=== PATIENT | female | born 1975 | race Caucasian/White ===

== ENCOUNTER 2021-06-25 10:42 | Outpatient (CLI) | payer OTHER, SELFPAY ==
[2021-06-25 11:42] LABS: Alanine Aminotransferase 13 U/L (14-59); Albumin Level 3.8 g/dL (3.4-5.0); Alkaline Phosphatase 65 U/L (46-116); Anion Gap 11 mmol/L (8-16); Aspartate Amino Transferase 13 U/L (15-37); Bilirubin,Total 0.4 mg/dL (0.00-1.00); Blood Urea Nitrogen 14 mg/dL (7-18); Calcium 8.8 mg/dL (8.5-10.1); Carbon Dioxide 26 mmol/L (21-32); Chloride 103 mmol/L (98-108); Cholesterol 253 mg/dL (0-200); Estimated Glomerular Filt Rate > 60; Glucose 85 mg/dL (70-99); HDL Direct 46 mg/dL (40-60); LDL Cholesterol Calculated 178 mg/dL (<130); Osmolality Calculated 289 mOsm/kg (285-295); Potassium 4.5 mmol/L (3.5-5.1); Sodium 140 mmol/L (136-145); Triglycerides 144 mg/dL (0-150)
== END 2021-06-25 10:43 | disposition home or self-care (01) ==
LOC: CHSLAB 10:44
PROVIDERS: PCP Nurse Practitioner Family; Visit Provider Nurse Practitioner Family
DX: Z00.00 Encounter for general adult medical examination without abnormal findings (principal)
CPT/HCPCS: 36415; 80053; 80061

== ENCOUNTER 2022-01-02 00:36 | Day surgery (SDC) | payer OTHER, SELFPAY ==
[2021-12-28 14:25] VITALS: BMI 29.5
--- NOTE | 2021-12-28 14:33 | PC.NURSE ---
Report to the Outpatient Waiting Room, entrance under the green pavilion located off [facility], at time 0800__ on date __01/02/22 . OR Time: __999 . - You and your visitor will be asked a series of questions to screen for COVID 19 for your protection. - Only one visitor is allowed at this time. - The patient visitor is requested to leave or wait in car when not with patient. - A mask is required within the hospital. Patients may have clear liquids (water, carbonated beverages, clear teas, apple juice) until 3 hours prior to surgery with a maximum of 20 ounces. - No food from midnight until time of surgery - Infants may have breast milk until 4 hours before surgery, infant formula 6 hours prior to surgery. - Children will be allowed to drink immediately following surgery. If applicable, please bring a bottle or sippy cup to assist with drinking. Juice, water, soda, and popsicles are readily available. For infants on formula, please bring formula the day of surgery. Pacifiers are allowed. Take the following medications with a SIP of water the morning of surgery: ADDERALL, SERTRALINE Medications to discontinue per physician VITAMIN Date to take last dose___12/30/21 Please no make-up, nail mozambican, hairspray, perfume, deodorant, or body powder the day of surgery. No jewelry (including any body piercings) or valuables the day of surgery, leave them at home. Please take a shower or bath the night before, or the morning of, surgery with an antibacterial soap. Wear comfortable, loose fitting clothing. Children are encouraged to wear pajamas. - Jewelry must be removed prior to entering the operating room. Rings and piercings that are not removed may be cut off. - The hospital will not accept responsibility for valuables. - Please leave all valuables, including medications, at home the day of surgery. If you are going home after surgery, a licensed hazmat cdl driver must drive you home. - NO public transportation without another adult. - We recommend that an adult stay with you for 24 hours following discharge. - We also recommend that you do not drive, make important decision, drink alcoholic beverages, or take any drugs that were not prescribed by your health care provider for at least 24 hours after your discharge time. For Pediatric surgeries, we recommend two adults accompany the child home (only one inside the building at this time). Follow any additional instructions given to you from your surgeon. If you or anyone in your household have experienced Covid symptoms in the past week, please notify your surgeon or the nurse liaison at the phone number below for possible testing. Telephone instructions given to _PATIENT___and asked if any additional questions and then verbalized understanding. Patient advised to call surgeon office or pre surgery nurse liaison [phone] if any additional questions.
[2022-01-02] VITALS (8 sets, daily range): BP systolic 100–117; BP diastolic 65–85; PULSE 58–95; RESP 14–18; TEMP 36.3–36.4; O2SAT 92–100; BMI 29.4
--- NOTE | 2022-01-02 09:16 | WPDANESEPPF ---
Anes - Initial Pre Proc Eval Procedure: Operation Date: 01/02/22 10:30 Proposed Procedures p Hysteroscopy with Biopsy Endometrium, Polypectomy, Lian Endometrial Ablation, Laparoscopic Bilateral Salpingectomy - Ladarius Valdes MD Date/Time: 01/02/22 09:16 Surgeon: Ladarius Valdes MD Pre Op Diagnosis: Polyp of Corpus Uteri, Vol STerlization Patient Data Age: 46 Gender: F Height: 1.63 m Weight: 77.7 kg Allergies Allergy/AdvReac Type Severity Reaction Status Date / Time buspirone Allergy Intermediate Unknown Verified 12/28/21 14:23 ranitidine Allergy Intermediate Unknown Verified 12/28/21 14:23 Sulfa (Sulfonamide Allergy Unknown Hives / Verified 12/28/21 14:23 Antibiotics) Red Face Sulfonamides Allergy Intermediate Unknown Uncoded 12/28/21 14:23 Home Medications Medication Instructions Recorded Confirmed Type dextroamphetamine-amphetamine ER 30 mg PO DAILY 06/25/21 12/28/21 History 30 mg 24hr capsule,extend release (Adderall XR) sertraline 50 mg tablet 50 mg PO DAILY 06/25/21 12/28/21 History multivit with minerals-iron 18 1 tablet PO DAILY 12/28/21 12/28/21 History mg-folic ac 400 mcg-vit K 25 mcg tablet (Adults Multivitamin) Patient hx anesthesia problems: none Family hx anesthesia problems: none Results Review: All pre-operative results and documents have been reviewed as part of the pre-operative evaluation. [facility] Past Medical History Medical History (Updated 01/02/22 @ 09:20 by Guy Mcrae MD) Anxiety Depression Surgical History Surgical History History of cholecystectomy Family History Family History Mother Carcinoma of colon Breast cancer Father Heart disease Social History Social History Smoking packs per day: 1 Smoking cigarettes per day: 20.0 Years smoked: 15 Smoking pack-years: 15.00 Smoking status: Former smoker Tobacco type: cigarettes Additional smoking assessment comments: 2006 QUIT DATE Alcohol intake: current Alcohol use details: 4 PER MONTH Substance use: never Substance use type: does not use Living arrangements: with family Additional living arrangements comments: lives with her son Gender identity (if verbalized by the patient): Female Anes - Evmya Final PreProcedure Day of Procedure 01/02/22 09:16 Patient weight: overweight Heart: regular rate and rhythm Lungs: clear to auscultation and normal air movement Airway: Mallampati scale class II Neurological: alert and oriented Last oral intake: >/= 8 hours ASA classification: II Emergent: no Anesthetic plan: proceed Anesthesia type and monitoring: general ETT Results Review: All pre-operative results and documents have been reviewed as part of the pre-operative evaluation. Informed Consent: The patient's anesthetic plan and its attendant risks and benefits were discussed with the patient/family/POA. Questions were solicited and answers provided to the satisfaction of the patient/family/POA.
--- NOTE | 2022-01-02 09:28 | SUR.PREOP ---
PT STATES NO NEED TO CALL ADULT DAUGHTER WHEN SHE GOES TO OR. JUST TO HAVE DR EASLEY CALL WHEN SURGERY IS FINISHED
[2022-01-02] MEDS: ACETAMINOPHEN 500 MG TABLET 1000 MG PO (09:41)
[2022-01-02] MEDS: KETOROLAC 15 MG/ML VIAL (*BKC) IV PUSH (09:41)
[2022-01-02] MEDS: LACTATED RINGERS 1,000 ML 30 ML IV CONT ×2 (09:42→11:31)
--- NOTE | 2022-01-02 09:44 | WPDHPUPDATE1 ---
History and Physical Update Update Date/Time: 01/02/22 09:44 History and Physical has been reviewed, including an updated exam of the patient. There are NO changes in the patient's condition. Risks, benefits, and alternatives have been discussed and questions answered. Patient agrees to proceed with procedure.
--- NOTE | 2022-01-02 09:58 | SUR.PREOP ---
0945; DR EASLEY IN PREOP. ADD D&C TO CONSENT
--- NOTE | 2022-01-02 11:29 | P.OP_ITS ---
Procedure Note - Detailed Date of Procedure 01/02/22 Pre-op Diagnosis Polyp of Corpus Uteri, Vol STerlization, menorrhagia Post-op Diagnosis Same Procedure Performed Laparoscopic bilateral salpingectomy, hysteroscopy D&C with polypectomy, endometrial ablation, removal of endocervical polyp. Surgeon Ladarius Valdes MD Anesthesia General Indications Menorrhagia, unwanted fertility, endometrial polyp Findings Endocervical polyp, likely fibroid, fibrous polypoid lesion on the posterior inferior endometrium. Normal-appearing tubes and ovaries. Normal pelvic anatomy, normal vulva, vagina. Endocervical mass/polyp Description of Procedure Patient was taken the operating room. She has prepped draped in the dorsal lithotomy position after induction of general anesthesia. A 5 mm abdominal incision was made in left upper quadrant of the abdomen with scalpel. A 5 mm trocars inserted the intra-abdominal cavity under direct visualization of the scope. Pneumoperitoneum was achieved. A 5 mm periumbilical incision was made using a scalpel on the abdominal scan. A 5 mm trocar was inserted the intra- abdominal cavity under visualization of the scope. A 5 mm incision made left lower quadrant of the abdomen. A 5 mm trocar was inserted the intra-abdominal cavity and direct visualization of the scope. The bilateral fallopian tubes were removed. The paratubal tissue in the area of the uterus was grasped with the LigaSure cautery and transected after being cauterized. The paratubal tissue from the ovary to the uterine cornu was cauterized and transected with LigaSure cautery. This was all done in a bila teral fashion. The tube was transected at the area of the uterine cornua and the tubes was removed through the 5 mm trocar site. The pneumoperitoneum was reduced. The trocars were removed. The skin was closed with subcuticular 4 Monocryl and covered with Dermabond. Removal of endocervical polyp/fibroid. It was grasped with a ring forceps and rotated until the mass was avulsed Our attention was then turned to the endometrial ablation portion of the procedure. A speculum was placed in the vagina. The cervix was grasped with a tenaculum. The cervix was dilated to approximately 8 mm with Dawkins dilators. The hysteroscope was inserted. And the below findings were noted. Hysteroscopic scissors were then used to dissect the posterior endometrial lesion. It was very fibrous and difficult to cut. It appeared entirely benign. Some pieces were removed. It will be sent for pathologic evaluation. All of the intrauterine surfaces were curettaged with a medium-size curette and the sp ecimens were collected. Measurements of the cervix were taken using the uterine sound and the hysteroscope. The intrauterine cavity measurements were entered into the handpiece. The device was inserted into the intrauterine cavity and the array was expanded. The balloon cuff was inflated. When an adequate seal was formed the safety and energy cycles were initiated and completed. The array was collapsed, the balloon was deflated. The insert was withdrawn. The hysteroscope was reinserted and a well desiccated intrauterine cavity was observed. The patient was taken recovery room stable condition. Sponge lap and needle counts were correct x2. She tolerated the procedure well. Estimated Blood Loss 25 Pathology Yes Complications No immediate complications Condition Stable Disposition PACU
[2022-01-02] MEDS: fentaNYL CITRATE INJ (*CRX) 100 MCG/2 ML VIAL 25 MCG IV PUSH ×4 (12:04→12:16)
[2022-01-02] MEDS: ONDANSETRON INJ 4 MG/2 ML VIAL IV PUSH (12:20)
[2022-01-02] MEDS: oxyCODONE HCL (*CRX) 5 MG TAB IR PO (13:01)
== END 2022-01-02 13:40 | disposition home or self-care (01) ==
PROVIDERS: PCP Nurse Practitioner Family; Visit Provider Obstetrics & Gynecology
PROC: 0UDB8ZZ Extraction of Endometrium, Via Natural or Artificial Opening Endoscopic (ICD-10-PCS; CPT 58558; principal; 2022-01-02 10:30)
DX: D25.0 Submucous leiomyoma of uterus (principal); Z30.2 Encounter for sterilization; N92.0 Excessive and frequent menstruation with regular cycle; N80.2 Endometriosis of fallopian tube; N73.6 Female pelvic peritoneal adhesions (postinfective); F41.8 Other specified anxiety disorders; Z87.891 Personal history of nicotine dependence
CPT/HCPCS: 58661; 58563; 88302; 88305; A9270; J1100; J1885; J2250; J2405; J2704; J2710; J3010; J7030; J7120

== ENCOUNTER 2022-04-04 14:18 | Emergency (ER) | payer OTHER, SELFPAY ==
--- NOTE | ~2022-04-04 | XR_ITS ---
EXAMINATION: XR chest 1V portable DATE: 04/04/2022 15:05 INDICATION: Left chest pain. Shortness breath. TECHNIQUE: A single frontal view of the chest was obtained. COMPARISON: Chest 2 views 04/05/2017 FINDINGS: The chest demonstrates clear lungs without pneumonia, pleural effusion, or pneumothorax. Th e heart size is normal. IMPRESSION: 1. No acute cardiopulmonary disease. Reviewed, dictated and finalized at location A.
--- NOTE | ~2022-04-04 | CT_ITS ---
EXAMINATION: CTA chest PE protocol DATE: 04/04/2022 16:00 INDICATION: Shortness of breath TECHNIQUE: Computed tomography angiography (CTA) of the chest was performed with 100 mL Omnipaque-350 intravenous contrast timed to evaluate the pulmonary arteries. Coronal maximum intensity projection 3D-reconstructions were created by the technologist. The dose-length product (DLP) was 350.27 mGy-cm. Automated exposure control and iterative reconstruction technique were employed. COMPARISON: None. FINDINGS: The pulmonary arteries are well-opacified. No pulmonary embolism is identified. The lungs are free of acute opacities. No pleural effusion or pneumothorax. No pathologically enlarged thoracic lymph nodes are identified. The heart size is normal. Calcified pulmonary nodules are consistent wit h old granulomatous disease. There there are multiple small masses of the right breast. IMPRESSION: 1. No pulmonary embolism or acute cardiopulmonary abnormality. 2. Multiple small masses of the right breast. Recommend correlation with mammography history. If not recently performed, follow-up diagnostic mammogram and possible ultrasound would be recommended. Reviewed, dictated and finalized at location B. IMPRESSION: 1. No pulmonary embolism or acute cardiopulmonary abnormality. 2. Multiple small masses of the right breast. Recommend correlation with mammog leonel history. If not recently performed, follow-up diagnostic mammogram and po ssible ultrasound would be recommended.
[2022-04-04 14:32] VITALS: BP 136/99; PULSE 110; RESP 16; TEMP 36.2; O2SAT 100
--- NOTE | 2022-04-04 14:44 | ECG_ITS ---
Measurements Intervals [place] Rate: 100 P: 40 IN: 122 QRS: 2 QRSD: 76 T: 43 QT: 327 QTc: 422 Interpretive Statements SINUS TACHYCARDIA DELAYED PRECORDIAL R/S TRANSITION BASELINE ARTIFACT- I, II, III, AVR, AVL, AVF BORDERLINE ECG NO PREVIOUS ECG AVAILABLE FOR COMPARISON Electronically Signed On 04-04-2022 15:11:41 CDT by Sen Lynch D.O.
[2022-04-04 15:07] LABS: Basophils Absolute Auto 0.09 K/mm3 (0.00-0.10); Basophils Percent Auto 1.7 % (0.0-1.0); Eosinophils Absolute Auto 0.18 K/mm3 (0.02-0.50); Eosinophils Percent Auto 3.4 % (1.0-6.0); Hemoglobin 9.6 g/dL (12.0-15.0); Immature Granulocyte Absolute 0.01 K/mm3 (0.00-0.00); Immature Granulocyte Percent A 0.2 % (0.0-0.0); Lymphocytes Absolute Auto 1.58 K/mm3 (1.10-4.50); Lymphocytes Percent Auto 29.9 % (18.0-42.0); Mean Corpuscular Hemoglobin 22.3 pg (27.0-31.0); Mean Corpuscular Volume 74.2 fL (78.0-102.0); Mean Platelet Volume 8.7 fl (9.2-11.8); Monocytes Absolute Auto 0.47 K/mm3 (0.10-0.90); Monocytes Percent Auto 8.9 % (2.0-11.0); Neutrophils Percent Auto 55.9 % (50.0-70.0); Platelet Count Result 457 K/mm3 (150-420); Red Blood Count 4.31 M/mm3 (4.20-5.40); Red Cell Distribution Width 17.8 % (11.6-14.4); White Blood Count 5.3 K/mm3 (4.8-10.8)
[2022-04-04] MEDS: SODIUM CHLORIDE 0.9% IV 1,000 ML 999 ML IV CONT (15:10)
[2022-04-04 15:24] LABS: D Dimer 0.88 mg/L (0.19-0.50)
[2022-04-04 15:38] LABS: Alanine Aminotransferase 13 U/L (14-59); Albumin Level 3.8 g/dL (3.4-5.0); Alkaline Phosphatase 63 U/L (46-116); Anion Gap 10 mmol/L (8-16); Aspartate Amino Transferase 10 U/L (15-37); Bilirubin,Total 0.2 mg/dL (0.00-1.00); Blood Urea Nitrogen 13 mg/dL (7-18); Calcium 9.1 mg/dL (8.5-10.1); Carbon Dioxide 24 mmol/L (21-32); Chloride 103 mmol/L (98-108); Estimated Glomerular Filt Rate > 60; Glucose 99 mg/dL (70-99); Osmolality Calculated 284 mOsm/kg (285-295); Sodium 137 mmol/L (136-145); Total Protein 7.2 g/dL (6.4-8.2)
[2022-04-04 15:39] LABS: Troponin I < 4.0 ng/L (0.00-60.4)
[2022-04-04 15:40] LABS: Thyroid Stimulating Hormone 5.52 uIU/mL (0.36-3.74)
--- NOTE | 2022-04-04 16:32 | ED.GENADULT ---
HPI - General Adult General Chief complaint: Unspecified Stated complaint: SOB/Fatigue/Vision blurred Time Seen by Provider: 04/04/22 14:44 Source: patient Mode of arrival: ambulatory Limitations: no limitations History of Present Illness HPI narrative: a 46-year-old female who presents with some mild shortness of breath with sinus pressure and blurry vision no cough for congestion apart and postnasal drip with no audible wheezing no fever chills no chest pain no abdominal pain does have some mild nausea but no diarrhea constipation. Onset (ago): day(s) Location: head Severity: mild Related Data Home Medications Medication Instructions Recorded Confirmed dextroamphetamine-amphetamine ER 30 mg PO DAILY 06/25/21 04/04/22 30 mg 24hr capsule,extend release (Adderall XR) sertraline 50 mg tablet 50 mg PO DAILY 06/25/21 04/04/22 multivit with minerals-iron 18 1 tablet PO DAILY 12/28/21 04/04/22 mg-folic ac 400 mcg-vit K 25 mcg tablet (Adults Multivitamin) Allergies Allergy/AdvReac Type Severity Reaction Status Date / Time buspirone Allergy Intermediate Unknown Verified 04/04/22 15:15 ranitidine Allergy Intermediate Unknown Verified 04/04/22 15:15 Sulfa (Sulfonamide Allergy Unknown Hives / Verified 04/04/22 15:15 Antibiotics) Red Face Sulfonamides Allergy Intermediate Unknown Uncoded 04/04/22 15:15 Review of Systems Review of Systems: All systems reviewed & are unremarkable except as noted in HPI and below PMFSH Past Medical History Medical History Anxiety Depression Surgical History Surgical History History of cholecystectomy Family History Family History Mother Carcinoma of colon Breast cancer Father Heart disease Social History Social History Smoking packs per day: 1 Smoking cigarettes per day: 20.0 Years smoked: 15 Smoking pack-years: 15.00 Smoking status: Former smoker Tobacco type: cigarettes Additional smoking assessment comments: 2006 QUIT DATE Alcohol intake: current Alcohol use details: 4 PER MONTH Substance use: never Substance use type: does not use Additional living arrangements comments: lives with her son Gender identity (if verbalized by the patient): Female Exam Const: General: cooperative, healthy appearing, comfortable and no acute distress HENMT: Head: normal to inspection Ears: hearing grossly normal bilaterally General nose exam: Normal external nose present Face and sinus: normal facial exam Face images: 1. Frontal sinus tenderness with palpation Throat: posterior oropharynx normal Eyes: General: appearance normal, both eyes and all related structures Visual Ramirez: normal visual ramirez by confrontation Alignment and Position: alignment normal Periorbital: periorbital findings normal Eyelids: eyelids normal Conjunctivae: conjunctivae normal Neck: Neck: normal visual inspection, full ROM, no lymphadenopathy and no meningeal signs Chest: Chest palpation & inspection: normal inspection of the chest and normal palpation of entire chest wall Resp: Effort & Inspection: normal respiratory effort Cardio: Jugular venous distension: no JVD Palpation: normal PMI Rate: regular rate Rhythm: regular rhythm GI: Inspection: normal to inspection Back/Spine/Pelvis: Back: no CVA tenderness Skin: General skin exam: normal color and no rashes or lesions noted Lesions: no lesions Rashes: no rashes Neuro: General: oriented to person, oriented to place, oriented to time and patient oriented x3 Extrem: General: normal to inspection, full ROM and capillary refill normal Psych: Appearance: grossly normal and well kempt Mental Status: mental status grossly normal Course Course Emergency Course: labs
[2022-04-04 16:48] VITALS: RESP 16; O2SAT 100
[2022-04-04 16:50] VITALS: BP 133/88; PULSE 88; RESP 16; TEMP 36.8; O2SAT 100
== END 2022-04-04 16:58 | disposition home or self-care (01) ==
PROVIDERS: Emergency Provider Emergency Medicine; PCP Nurse Practitioner Family
DX: L98.9 Disorder of the skin and subcutaneous tissue, unspecified (principal); J32.8 Other chronic sinusitis; E03.9 Hypothyroidism, unspecified
CPT/HCPCS: 36415; 71045; 71275; 80053; 84443; 84484; 85025; 85380; 93005; 96360; 99284; J7030; Q9967

== ENCOUNTER 2022-04-09 11:35 | Outpatient (CLI) | payer OTHER, SELFPAY ==
[2022-04-09 11:50] LABS: Basophils Absolute Auto 0.11 K/mm3 (0.00-0.10); Basophils Percent Auto 2.3 % (0.0-1.0); Eosinophils Absolute Auto 0.21 K/mm3 (0.02-0.50); Eosinophils Percent Auto 4.4 % (1.0-6.0); Hematocrit 35.1 % (35.0-49.0); Hemoglobin 10.4 g/dL (12.0-15.0); Immature Granulocyte Absolute 0.02 K/mm3 (0.00-0.00); Immature Granulocyte Percent A 0.4 % (0.0-0.0); Immature Reticulocyte Fraction 14.9 % (2.0-16.52); Lymphocytes Absolute Auto 1.56 K/mm3 (1.10-4.50); Lymphocytes Percent Auto 32.5 % (18.0-42.0); Mean Corpuscular HGB Conc 29.6 g/dL (32.0-36.0); Mean Corpuscular Hemoglobin 22.3 pg (27.0-31.0); Mean Corpuscular Volume 75.3 fL (78.0-102.0); Mean Platelet Volume 8.5 fl (9.2-11.8); Monocytes Percent Auto 8.3 % (2.0-11.0); Neutrophils Absolute Auto 2.5 K/mm3 (1.7-7.2); Neutrophils Percent Auto 52.1 % (50.0-70.0); Platelet Count Result 474 K/mm3 (150-420); Red Blood Count 4.66 M/mm3 (4.20-5.40); Reticulocyte Hemoglobin Conten 25.5 pg (28.0-35.0); Reticulocyte Percent 1.19 % (0.50-1.50); Reticulocytes Absolute 0.06 M/mm3 (0.02-0.1); White Blood Count 4.8 K/mm3 (4.8-10.8)
[2022-04-09 13:42] LABS: Alanine Aminotransferase 14 U/L (14-59); Albumin Level 4.1 g/dL (3.4-5.0); Alkaline Phosphatase 67 U/L (46-116); Anion Gap 10 mmol/L (8-16); Aspartate Amino Transferase 13 U/L (15-37); Bilirubin,Total 0.4 mg/dL (0.00-1.00); Blood Urea Nitrogen 14 mg/dL (7-18); Carbon Dioxide 24 mmol/L (21-32); Chloride 102 mmol/L (98-108); Cholesterol 252 mg/dL (0-200); Estimated Glomerular Filt Rate > 60; Ferritin 7 ng/mL (8-252); Free T4 Free Thyroxine 0.88 ng/dL (0.76-1.46); Glucose 90 mg/dL (70-99); HDL Direct 65 mg/dL (40-60); Iron 29 ug/dL (50-170); LDL Cholesterol Calculated 160 mg/dL (<130); Osmolality Calculated 282 mOsm/kg (285-295); Potassium 4.3 mmol/L (3.5-5.1); Sodium 136 mmol/L (136-145); Total Protein 7.4 g/dL (6.4-8.2); Triglycerides 133 mg/dL (0-150); Vitamin B12 933 pg/mL (193-986)
[2022-04-11 10:26] LABS: Red Blood Cell Folate 715 ng/mL RBC (>280)
[2022-04-12 12:28] LABS: Vitamin D 25 Hydroxy 25 ng/mL (30-100)
== END 2022-04-09 11:36 | disposition home or self-care (01) ==
PROVIDERS: PCP Nurse Practitioner Family; Visit Provider Nurse Practitioner Family
DX: D64.9 Anemia, unspecified (principal); R79.89 Other specified abnormal findings of blood chemistry; E78.5 Hyperlipidemia, unspecified; Z79.899 Other long term (current) drug therapy
CPT/HCPCS: 36415; 80053; 80061; 82306; 82607; 82728; 82747; 83540; 84439; 85025; 85046

== ENCOUNTER 2022-04-11 08:52 | Outpatient (CLI) | payer OTHER, SELFPAY ==
--- NOTE | ~2022-04-11 | MMUS_ITS ---
EXAMINATION: MM diagnostic joan BI w alina, US breast BI complete HISTORY: Multiple small masses of right breast reported on 04/04/2022 CT pulmonary scan TECHNIQUE: Full field and spot ML, MLO and CC 3-D tomosynthesis images of both breasts were performed and synthetic 2-D images were generated. CAD analysis was submitted and interpreted. Bilateral complete breast ultrasound was performed including all 4 quadrants and subareolar area of e ach breast. COMPARISON: 03/16/2015 bilateral diagnostic mammography and bilateral complete breast ultrasound exami nation BREAST PARENCHYMAL COMPOSITION: The breasts are heterogeneously dense, which may obscure small masses . MAMMOGRAM FINDINGS: Right breast: New approximately 1.6 x 2.6 X 3 cm opacity with halo sign is noted in the right subareolar area; the mammographic features suggest benign process, likely a benign cyst. Approximately 7.6 x 14.7 mm circumscribed opacity is noted in the central left breast 3.3 cm deep to the nipple on MLO view (MLO Tomosynthesis image 28/56).. The heterogeneously dense stroma may obscure additional masses in either breast. No architectural distortion, malignant calcification, skin thickening or retraction of either breast is detected. ULTRASOUND FINDINGS; Right breast: 6:00 1 cm from nipple: Had palpable area there is a 7.6 x 3.8 x 7 mm sonolucency without internal vas cularity, consistent with cyst. Retroareolar area: 10.7 x 22 x 31 mm parallel circumflex sonolucency with through transmission incident response manager ior enhancement, consistent with large cyst. 12:00 5 cm from nipple: Parallel circumscribed hypoechoic 4 x 6.9 x 9.6 mm solid lesion without suspi cious shadowing 12:00 3 cm from nipple: 3.5 mm cyst 3:00 1 cm from nipple: 3.2 mm cyst 4:00 near nipple: Parallel circumscribed hypoechoic 3.7 x 2.6 x 5.1 mm circumscribed solid hypoechoic lesion without internal vascularity or posterior shadowing 4:00 near nipple: Cluster of cysts measuring up to approximately 4.5 x 6.4 mm overall dimension 9:00 AND 10:00: Clusters of cysts 10:00 7 cm from nipple: 4.5 x 11 mm circumscribed hypoechoic solid lesion Left breast: 11:00 near nipple: 4.8 x 14 mm circumscribed hypoechoic lesion without internal vascularity , with t hrough transmission, benign 1:00: 3.6 X 11 mm cyst 2:00 7 cm from nipple: 4.7 x 11 mm solid hypoechoic lesion without internal vascularity or shadowing 4:00, 5:00: occasional 3 mm or smaller cysts 8:00: 2.9 x 5.9 mm cyst Left axilla: 5 x 3.5 x 3.4 mm circumscribed hypoechoic lesion without internal vascularity or shadow ing IMPRESSION: 1. Multiple bilateral cysts and circumscribed solid lesions; no mammographic or sonographic evidence of malignancy 2. Routine annual mammographic screening is recommended. BIRADS CATEGORY 2: BENIGN And ultrasound Reviewed, dictated and finalized at location A. IMPRESSION: 1. Multiple bilateral cysts and circumscribed solid lesions; no mammographic or sonographic evidence of malignancy 2. Routine annual mammographic screening is recommended. BIRADS CATEGORY 2: BENIGN And ultrasound
== END 2022-04-11 08:53 | disposition home or self-care (01) ==
LOC: CHSIMG 08:54
PROVIDERS: PCP Nurse Practitioner Family; Visit Provider Nurse Practitioner Family
DX: N63.13 Unspecified lump in the right breast, lower outer quadrant (principal)
CPT/HCPCS: 76641; 77062; 77066; G0279

== ENCOUNTER 2023-03-11 13:26 | Outpatient (CLI) | payer OTHER, SELFPAY ==
[2023-03-11 13:40] LABS: Basophils Absolute Auto 0.08 K/mm3 (0.00-0.10); Basophils Percent Auto 1.4 % (0.0-1.0); Eosinophils Absolute Auto 0.22 K/mm3 (0.02-0.50); Eosinophils Percent Auto 3.9 % (1.0-6.0); Hematocrit 42.5 % (35.0-49.0); Hemoglobin 14.5 g/dL (12.0-15.0); Immature Granulocyte Absolute 0.01 K/mm3 (0.00-0.00); Immature Granulocyte Percent A 0.2 % (0.0-0.0); Lymphocytes Percent Auto 26.5 % (18.0-42.0); Mean Corpuscular HGB Conc 34.1 g/dL (32.0-36.0); Mean Corpuscular Hemoglobin 31.9 pg (27.0-31.0); Mean Corpuscular Volume 93.6 fL (78.0-102.0); Mean Platelet Volume 9.2 fl (9.2-11.8); Monocytes Absolute Auto 0.47 K/mm3 (0.10-0.90); Monocytes Percent Auto 8.3 % (2.0-11.0); Neutrophils Absolute Auto 3.4 K/mm3 (1.7-7.2); Neutrophils Percent Auto 59.7 % (50.0-70.0); Platelet Count Result 342 K/mm3 (150-420); Red Blood Count 4.54 M/mm3 (4.20-5.40); White Blood Count 5.7 K/mm3 (4.8-10.8)
[2023-03-11 14:22] LABS: Alanine Aminotransferase 7 U/L (14-59); Albumin Level 3.8 g/dL (3.4-5.0); Alkaline Phosphatase 57 U/L (46-116); Amylase 63 U/L (25-115); Anion Gap 11 mmol/L (8-16); Aspartate Amino Transferase < 10 U/L (15-37); Bilirubin,Total 0.6 mg/dL (0.00-1.00); Blood Urea Nitrogen 6 mg/dL (7-18); Calcium 9.2 mg/dL (8.5-10.1); Carbon Dioxide 25 mmol/L (21-32); Chloride 106 mmol/L (98-108); Cholesterol 194 mg/dL (0-200); Estimated Glomerular Filt Rate > 60; Glucose 98 mg/dL (70-99); HDL Direct 44 mg/dL (40-60); LDL Cholesterol Calculated 117 mg/dL (<130); Lipase 70 U/L (16-77); Osmolality Calculated 291 mOsm/kg (285-295); Potassium 4.3 mmol/L (3.5-5.1); Sodium 142 mmol/L (136-145); Triglycerides 167 mg/dL (0-150)
== END 2023-03-11 13:27 | disposition home or self-care (01) ==
LOC: CHSLAB 13:27
PROVIDERS: PCP Nurse Practitioner Family; Visit Provider Nurse Practitioner Family
DX: E78.5 Hyperlipidemia, unspecified (principal); K90.9 Intestinal malabsorption, unspecified
CPT/HCPCS: 36415; 80053; 80061; 82150; 83690; 85025

== ENCOUNTER 2023-04-04 09:01 | Outpatient (CLI) | payer OTHER, SELFPAY ==
--- NOTE | ~2023-04-04 | US_ITS ---
EXAMINATION: US abdomen complete DATE: 04/04/2023 09:47 INDICATION: Abdominal pain, bowel changes TECHNIQUE: Multiple grayscale and Doppler ultrasound images of the abdomen were obtained. COMPARISON: 05/05/2015 FINDINGS: The head and body of the pancreas are normal. The pancreatic tail is obscured by bowel gas. The liver is normal with normal echogenicity and echotexture. No surface nodularity. Normal hepatope rowdy flow in the main portal vein. There are changes of cholecystectomy The normal common bile duct me asures 5 mm. The visualized portions of the aorta and inferior vena cava are normal. The spleen is not well visualized but grossly normal in appearance. The right kidney measures 11.5 x 4.8 x 5.4 cm. The left kidney measures 11.1 x 4.6 x 4.8 cm. The kidneys demonstrate normal parenchyma l echogenicity. There is no hydronephrosis. IMPRESSION: 1. No sonographic correlate for the patient's symptoms. Reviewed, dictated and finalized at location B.
[2023-04-09 05:56] LABS: Fecal Fat, Ql Normal (Normal)
[2023-04-10 18:53] LABS: Calprotectin, Stool <5 mcg/g
[2023-04-10 22:39] LABS: Lactoferrin, Stool Negative (Negative)
[2023-04-13 14:38] LABS: Pancreatic Elastase, Stool >500 mcg/g
== END 2023-04-04 09:02 | disposition home or self-care (01) ==
PROVIDERS: PCP Nurse Practitioner Family; Visit Provider Nurse Practitioner Family
DX: R19.7 Diarrhea, unspecified (principal); K90.9 Intestinal malabsorption, unspecified; R19.5 Other fecal abnormalities
CPT/HCPCS: 76700; 82653; 82705; 83630; 83993; 87045; 87427; 87449; 87493

== ENCOUNTER 2024-11-17 09:10 | Outpatient (CLI) | payer OTHER, SELFPAY ==
--- NOTE | ~2024-11-17 | MM_ITS ---
EXAMINATION: MM screening joan BI w alina HISTORY: Screening TECHNIQUE: Craniocaudal and mediolateral oblique 3-D tomosynthesis images were obtained and synthetic 2-D images were generated. CAD analysis was submitted and interpreted. COMPARISON: Comparison to multiple prior studies sequentially, with oldest reviewed study dated 03/20. BREAST PARENCHYMAL COMPOSITION: Not dense: There are scattered areas of fibroglandular density. FINDINGS: There are developing bilateral breast masses. There are developing clustered calcifications in the upper outer quadrant of the right breast. There are no suspicious areas of architectural dist ortion. IMPRESSION: 1. Developing bilateral breast masses and clustered indeterminate right breast calcifications. 2. Additional mammographic views and possible breast ultrasound are recommended. BI-RADS Category 0: Incomplete: Needs additional imaging evaluation. Reviewed, dictated and finalized at location A. IMPRESSION: 1. Developing bilateral breast masses and clustered indeterminate right breast calcifications. 2. Additional mammographic views and possible breast ultrasound are recommended . BI-RADS Category 0: Incomplete: Needs additional imaging evaluation.
--- OUTSIDE RECORDS SUMMARY | 2024-11-17 09:59 | XMS_ITS | Data Portability ---
Author Organization [facility] [place] Address [address] [place] [address] [place] [address] Care Team Providers Care Prepress Supervisor Name Role Phone LETA ALVARENGA Primary Care Provider Assessment Encounter Date Assessment Date Assessment LastModified by Organization Details LastModified Time 05/30/2023 05/30/2023 Annual gynecological exam performed. Patient will come back in a year unless there are new symptoms. Not available 05/30/2023 13:31:08 Plan of Treatment Reminders Order Date Submit Date Provider Last Modified By Organization Details Last Modified Time Details Appointments [facility] 2024 08:30A M DORINA GOODSON, OLIVER Not available Not available Not available Lab urinalysi s, dipstick 2023 024 [email or web address] [place], [address], [place], [address], 04/07/2024 11:33:17 culture, urine 2023 024 [facility] (Lab), [address], [place], [address], 04/08/2024 20:16:42 urinalysi s, dipstick 2023 024 [email or web address] [address], [address], [place], [address], 04/01/2024 16:22:02 urinalysi s, dipstick 2021 022 [email or web address], [address], [place], [address], 01/08/2022 18:11:53 culture, urine 2021 022 [email or web address] [facility] (Lab), [address] [facility], [place], [address], 02/12/2022 23:45:27 Referral None recorded. Procedures None recorded. Surgeries None recorded. Imaging None recorded. Medication Orders Macrobid 100 mg capsule 2023 024 [id number], [address], [place], [id number], 04/07/2024 11:34:23 Cipro 500 mg tablet 2023 024 [facility] #[id number], [address], [place], [id number], 04/01/2024 16:39:53 Diflucan 150 mg tablet 2023 024 [id number], [address], [place], [id number], 04/01/2024 16:38:37 clotrimaz ole-betam ethasone 1 %-0.05 % topical cream 2023 024 [id number], [address], [place], [id number], 04/01/2024 16:38:35 metronida zole 500 mg tablet 2022 024 [facility] #[id number], [address], [place], [id number], 04/01/2024 16:14:10 Patient TargetsNo targets recorded. Patient InstructionsNo instructions recorded. Reason for Referral None Reported. Results Created Date Observation Date Name Description Value Unit Range Abnormal Flag Note LastModifiedBy Organization Detail LastModifiedTime 12/20/19 22 12/19/2021 CBC W/DIF F WBC 4.4 10'3/ uL 3.6-10 .2 Not Available [facility] (Lab) [address], [place], [address], 12/20/2021 03:54:20 12/20/19 22 12/19/2021 CBC W/DIF F RBC 4.30 10'6/ uL (based on docume nted legal sex) 4.10-5 .30 Not Available [facility] (Lab) [address] [place], [address], 12/20/2021 03:54:20 12/20/19 22 12/19/2021 CBC W/DIF F HGB 9.7 g/dL (based on docume nted legal sex) 11.9-1 5.8 low Not Available [facility] (Lab) [address] [place], [address], 12/20/2021 03:54:20 12/20/19 22 12/19/2021 CBC W/DIF F HCT 34.3 % (based on docume nted legal sex) 37.4-4 8.3 low Not Available [facility] (Lab) [address] [place], [address], 12/20/2021 03:54:20 12/20/19 22 12/19/2021 CBC W/DIF F MCV 80.0 fL 82.0-9 9.0 low Not Available [facility] (Lab) [address] [place], [address], 12/20/2021 03:54:20 12/20/19 22 12/19/2021 CBC W/DIF F MCH 23.0 pg 27.0-3 3.0 low Not Available [facility] (Lab) [address] [place], [address], 12/20/2021 03:54:20 12/20/19 22 12/19/2021 CBC W/DIF F MCHC 28.0 g/dL 32.0-3 6.0 low Not Available [facility] (Lab) [address], [place], [address], 12/20/2021 03:54:20 12/20/19 22 12/19/2021 CBC W/DIF F RDW 23.0 % 11.0-1 5.0 high Not Available [facility] (Lab) [address], [place], [address], 12/20/2021 03:54:20 12/20/19 22 12/19/2021 CBC W/DIF F plt 483 10'3/ uL 150-45 0 high Not Available [facility] (Lab) [address], [place], [address], 12/20/2021 03:54:20 12/20/19 22 12/19/2021 CBC W/DIF F MPV 9.6 fL 9.8-12 .7 low Not Available [facility] (Lab) [address], [place], [address], 12/20/2021 03:54:20 12/20/19 22 12/19/2021 CBC W/DIF F NRBC's 0.00 % 0 Not Available [facility] (Lab) [address] [place], [address], 12/20/2021 03:54:20 12/20/19 22 12/19/2021 CBC W/DIF F absolute NRBCs 0.0 10'3/ uL 0 Not Available [facility] (Lab) [address] [place], [address], 12/20/2021 03:54:20 12/20/19 22 12/19/2021 CBC W/DIF F neutrophils 55.0 % 37.0-7 2.0 Not Available [facility] (Lab) [address] [place], [address], 12/20/2021 03:54:20 12/20/19 22 12/19/2021 CBC W/DIF F lymphocytes 32.0 % 16.0-4 8.0 Not Available [facility] (Lab) [address] [facility], [place], [address], 12/20/2021 03:54:20 12/20/19 22 12/19/2021 CBC W/DIF F monocytes 8.0 % 4.0-14 .0 Not Available [facility] (Lab) [address] [facility], [place], [address], 12/20/2021 03:54:20 12/20/19 22 12/19/2021 CBC W/DIF F eosinophils 3.0 % 0.0-9. 0 Not Available [facility] (Lab) [address] [facility], [place], [address], 12/20/2021 03:54:20 12/20/19 22 12/19/2021 CBC W/DIF F basophils 2.0 % 0.0-2. 0 Not Available [facility] (Lab) [address] [facility], [place], [address], 12/20/2021 03:54:20 12/20/19 22 12/19/2021 CBC W/DIF F immature granulocytes 0.0 % no define d refere nce range Not Available [facility] (Lab) [address] [place], [address], 12/20/2021 03:54:20 12/20/19 22 12/19/2021 CBC W/DIF F absolute neutrophils 2.4 10'3/ uL 1.1-6. 0 Not Available [facility] (Lab) [address] [place], [address], 12/20/2021 03:54:20 12/20/19 22 12/19/2021 CBC W/DIF F absolute lymphocytes 1.4 10'3/ uL 0.7-3. 4 Not Available [facility] (Lab) [address] [facility], [place], [address], 12/20/2021 03:54:20 12/20/19 22 12/19/2021 CBC W/DIF F absolute monocytes 0.4 10'3/ uL 0.3-1. 0 Not Available [facility] (Lab) [address] [place], [address], 12/20/2021 03:54:20 12/20/19 22 12/19/2021 CBC W/DIF F absolute eosinophils 0.2 10'3/ uL 0.0-0. 6 Not Available [facility] (Lab) [address] [facility], [place], [address], 12/20/2021 03:54:20 12/20/19 22 12/19/2021 CBC W/DIF F absolute basophils 0.1 10'3/ uL 0.0-0. 1 Not Available [facility] (Lab) [address] [facility], [place], [address], 12/20/2021 03:54:20 12/20/19 22 12/19/2021 CBC W/DIF F absolute immature granulocytes 0.00 10'3/ uL 0.00-0 .10 2021 2:33 AM: P indic ates parti al resul ts on a panel have been relea sed. Addit ional resul ts will follo w. 2021 2:33 AM: This resul t has been final verif ied. No addit ional or fung ed resul ts are expec nhung. Not Available [facility] (Lab) [address] [facility], [place], [address], 12/20/2021 03:54:20 12/20/19 22 12/19/2021 TOM TIN / IRON / TRANS TOM N / TIBC iron 10 ug/dL 40-170 low Not Available [facility] (Lab) [address] [place], [address], 12/20/2021 03:54:20 12/20/19 22 12/19/2021 TOM TIN / IRON / TRANS TOM N / TIBC transferrin 297 mg/dL 200-36 0 Not Available [facility] (Lab) [address] [place], [address], 12/20/2021 03:54:20 12/20/19 22 12/19/2021 TOM TIN / IRON / TRANS TOM N / TIBC ferritin 13.0 NG/mL 8.0-25 2.0 Not Available [facility] (Lab) [address] [facility], [place], [address], 12/20/2021 03:54:20 12/20/19 22 12/19/2021 TOM TIN / IRON / TRANS TOM N / TIBC TIBC 416 ug/dL 250-45 0 Not Available [facility] (Lab) [address] [place], [address], 12/20/2021 03:54:20 12/20/19 22 12/19/2021 TOM TIN / IRON / TRANS TOM N / TIBC iron saturation 2 % 20-55 low Not Available [facility] (Lab) [address] [place], [address], 12/20/2021 03:54:20 01/09/20 22 01/08/2022 CULTU RE: URINE result report SEE RESULT S BELOW Test: Cultu re: Urine Speci men Sourc e: Urine Voide d Speci men Type: Urine Speci men Date: 2021 4:56 PM Resul t Date: 2021 10:29 PM Resul t Statu s: Final resul t Abnor mal: No Resul ting Lab: [facility] [address] [facility] [address] Tel: [phone] CULTU RE ----- ----- ----- --- No growt h in 1 day (dete ction level of 10,00 0 colon ies / ml.) Not Available [facility] (Lab) [address] [place], [address], 01/09/2022 23:33:27 01/09/20 22 01/08/2022 urina lysis , dipst ick Leukocytes ++ Not Available [facility] [address], [place], [address], 01/08/2022 17:33:52 01/09/20 22 01/08/2022 urina lysis , dipst ick Nitrite NEGATI VE Not Available [place] [address], [place], [address], 01/08/2022 17:33:52 01/09/20 22 01/08/2022 urina lysis , dipst ick Urobilinogen NEGATI VE Not Available [place] [address], [place], [address], 01/08/2022 17:33:52 01/09/20 22 01/08/2022 urina lysis , dipst ick Protein TRACE Not Available [place] [address], [place], [address], 01/08/2022 17:33:52 01/09/20 22 01/08/2022 urina lysis , dipst ick pH 6 Not Available [place] [address], [place], [address], 01/08/2022 17:33:52 01/09/20 22 01/08/2022 urina lysis , dipst ick Blood +++ Not Available [place] [address], [place], [address], 01/08/2022 17:33:52 01/09/20 22 01/08/2022 urina lysis , dipst ick Specific [place] 1.000 Not Available [facility] [address], [place], [address], 01/08/2022 17:33:52 01/09/20 22 01/08/2022 urina lysis , dipst ick Ketone NEGATI VE Not Available [place] [address], [place], [address], 01/08/2022 17:33:52 01/09/20 22 01/08/2022 urina lysis , dipst ick Bilirubin NEGATI VE Not Available [place] [address], [place], [address], 01/08/2022 17:33:52 01/09/20 22 01/08/2022 urina lysis , dipst ick Glucose NEGATI VE Not Available [place] [address], [place], [address], 01/08/2022 17:33:52 01/09/20 22 01/08/2022 urina lysis , dipst ick Appearance CLOUDY Not Available [facility] [address], [place], [address], 01/08/2022 17:33:52 01/09/20 22 01/08/2022 urina lysis , dipst ick Color PINK Not Available [place] [address], [place], [address], 01/08/2022 17:33:52 05/30/20 23 05/30/2023 IMAGE GUIDE D PAP AND HPV REGAR DLESS image guided Pap, HPV regardless of Pap result SEE RESULT S BELOW CASE REPOR T: Cytol ogy Gynec ologi [place] Repor t Case: [id number] Autho ja roberts Provi alena: Linus Pinzon Colle cted: 05/30 1513 BUDDHIST MONK Order ing Locat ion: [place] [facility] Recei robby: 05/31 0212 First Scree n: Hodges , Bansi , CT Speci men: Scree diann Pap - Image d, Cervi x STATE MENT OF ADEQU ACY: Satis facto ry for evalu ation Trans forma tion zone compo nent prese nt FINAL DIAGN OSIS: Negat edgardo for Intra epith elial Lesio n or Johnnie scott (NIL) . Elect pohng barcenas d by Dyan Hodges , CT on 2022 at 2:32 PM ----- ----- ----- ----- ----- ----- ----- ----- ----- ----- ----- ----- ----- ----- ----- ----- ----- ---- HPV RESUL TS: HPV mRNA E6/E7 : No HPV mRNA Detec nhung NOTE: This high risk HPV mRNA assay detec ts fourt een high- risk HPV types (16, 18, 31, 33, 35, 39, 45, 51, 52, 56, 58, 59, 66, 68) witho ut diffe renti ation . COMME NT: This speci men was revie wed by a Cytot echno logis t and/o r Patho logis t (as indic ated in this repor t) after evalu ation using the Thinp rep Imagi ng Syste m. [facility] [place] INFOR MATIO N: Menst rual Statu s: LMP (if appli cable ): [facility] Histo ry/Pr eviou s Pap: Type of Neopl kt (if appli cable ): Signi fican t [facility] Findi ngs: Other Histo ry: Hormo judy (if appli cable ): PAP EDUCA JUANA L NOTE: The Pap Test is a scree diann test with an inher ent false negat edgardo rate. Liqui d-bas ed sampl ing may decre ase, but will not elimi moo, false negat edgardo resul ts. A negat edgardo resul t does not precl ude the prese nce and/o r devel opmen t of disea se, since the prese nce of abnor mal cells in the sampl e depen ds on the locat ion of the lesio n and sampl ing techn ique. Andrae nued regul ar scree diann is the best metho d of cance r preve ntion . If repor nhung cytol ogic findi ng do not corre late with physi [place] and/o r histo rical findi ngs, lindaross ortiz kat ortega correa is recom leah d, as clini clyde dharmehs nted. Not Available [facility] (Lab) [address] [facility], [place], [address], 06/03/2023 15:36:14 04/01/20 24 04/01/2024 VAGIN ITIS/ VAGIN OSIS, DNA PROBE tato sp. detection, direct probe Negati ve negati ve Not Available [facility] (Lab) [address] [facility], [place], [address], 04/03/2024 07:21:51 04/01/20 24 04/01/2024 VAGIN ITIS/ VAGIN OSIS, DNA PROBE gardnerella vag. detection, direct probe Negati ve negati ve Not Available [facility] (Lab) [address] [facility], [place], [address], 04/03/2024 07:21:51 04/01/20 24 04/01/2024 VAGIN ITIS/ VAGIN OSIS, DNA PROBE trichomonas vag. detection, direct probe Negati ve negati ve Not Available [facility] (Lab) [address] [place], [address], 04/03/2024 07:21:51 04/01/20 24 04/01/2024 CULTU RE: URINE result report SEE RESULT S BELOW Test: Cultu re: Urine Speci men Sourc e: Urine - Clean Catch Speci men Type: Urine Speci men Date: 1645 Resul t Date: 18 Resul t Statu s: Final resul t Abnor mal: No Resul ting Lab: [facility] [address] [facility] [address] Tel: CULTU RE ----- ----- ----- --- No growt h in 1 day (dete ction level of 10,00 0 colon ies / ml.) Not Available [facility] (Lab) [address], [place], [address], 04/03/2024 07:21:52 04/01/20 24 04/01/2024 urina lysis , dipst ick Protein + Not Available [place] [address], [place], [address], 04/01/2024 16:18:52 04/01/20 24 04/01/2024 urina lysis , dipst ick pH 5 Not Available [place] [address], [place], [address], 04/01/2024 16:18:52 04/01/20 24 04/01/2024 urina lysis , dipst ick Blood + Not Available [place] [address], [place], [address], 04/01/2024 16:18:52 04/01/20 24 04/01/2024 urina lysis , dipst ick Specific [place] 1.020 Not Available [place] [address], [place], [address], 04/01/2024 16:18:52 04/07/20 24 04/07/2024 CULTU RE: URINE result report SEE RESULT S BELOW Test: Cultu re: Urine Speci men Sourc e: Urine - Clean Catch Speci men Type: Urine Speci men Date: 2023 1123 Resul t Date: 2023 1914 Resul t Statu s: Final resul t Abnor mal: No Resul ting Lab: [facility] [address] [facility] [address] Tel: CULTU RE ----- ----- ----- --- No growt h in 1 day (dete ction level of 10,00 0 colon ies / ml.) Not Available [facility] (Lab) [address], [place], [address], 04/08/2024 20:16:42 04/07/20 24 04/07/2024 urina lysis , dipst ick Leukocytes + Not Available [facility] [address], [place], [address], 04/07/2024 11:32:48 04/07/20 24 04/07/2024 urina lysis , dipst ick Protein + Not Available [place] [address], [place], [address], 04/07/2024 11:32:48 04/07/20 24 04/07/2024 urina lysis , dipst ick pH 6 Not Available [place] [address], [place], [address], 04/07/2024 11:32:48 04/07/20 24 04/07/2024 urina lysis , dipst ick Blood + Not Available [place] [address], [place], [address], 04/07/2024 11:32:48 04/07/20 24 04/07/2024 urina lysis , dipst ick Specific [place] 1.000 Not Available [facility] [address], [place], [address], 04/07/2024 11:32:48 04/07/20 24 04/07/2024 urina lysis , dipst ick Ketone + Not Available [place] [address], [place], [address], 04/07/2024 11:32:48 Result Notes None recorded. Procedures Surgical History Date Name Laterality Status Provider Name and Address Organization Details Recorded Time 05/30/20 23 Date of Last Pap Smear completed Roxi Xie [place] [facility] 04/01/2024 16:14:05 01/03/20 22 HYSTEROSCOPY, WITH ENDOMETRIAL ABLATION (SURG) completed Inga Fuentes [facility] 01/03/2022 11:36:53 06/27/20 15 cholecystectomy completed Violet Vazquez [facility] 11/24/2021 10:21:27 03/20/20 15 Date of [facility] 11/24/2021 10:15:51 07/28/19 05 excision of benign tumor of breast [facility] 11/24/2021 10:21:13 07/28/19 03 [facility] of wisdom tooth [facility] 11/24/2021 10:21:35 Breast Biopsy completed Estefania Stacy [facility] 12/04/2021 12:42:33 Imaging Results None recorded. Procedure Notes None recorded. Medical Equipment None Reported. Allergies Allergen ID Allergen Name Allergen Category Reaction Reaction Severity Criticality Documentation Date Start Date Code Code System Note Provider Name and Address Organization Details Recorded Time 66146 Substance with sulfonami de structure and antibacte rial mechanism of action (substanc e) medicatio n Not available Not available Not available 07/14/2020 31454 8003 SNOMED Comme nt: [facility]; Not Available [facility] 0 14:24:22 Medications Name Sig Start Date Stop Date Status Note LastModified by Organization Details LastModified Time amoxicill in 500 mg capsule 05/30 completed Not Available Not Available Not Available Colace 100 mg capsule Take 1 capsule every day by oral route for 32 days. 12/31 completed Not Available Not Available Not Available fluconazo le 150 mg tablet TAKE 1 TABLET BY MOUTH EVERY OTHER DAY active Not Available Not Available No t Available hydrocodo ne 5 mg-acetam inophen 325 mg tablet TAKE 1 TABLET BY MOUTH EVERY 4 HOURS NEEDED FOR PAIN 05/30 completed Not Available Not Available Not Available Adderall 5 mg tablet take 1 tablet by oral route 2 times every day before breakfas t and at noon 03/15 completed Prescrib ed Elsewher e: Yes Loca tion: Pamela stokes [facility] odify By: candice Marshallsavanna r DateTime : 11/22/19 18 10:15:00 AM Not Available Not Available Not Available Zoloft 20 mg/mL oral concentra te take 2.5 millilit er by oral route every day and mix with 4 oz. (1/2 cup) of water, walter cortes, lemon/li me soda, lemonade or orange juice ONLY 12/31 completed Prescrib ed Elsewher e: Yes Loca tion: Pamela stokes [facility] By: candice Cain r DateTime : 11/22/19 18 10:15:00 AM Not Available Not Available Not Available metronida zole 500 mg tablet TAKE 1 TABLET BY MOUTH TWICE DAILY WITH MEALS 04/01 completed Not Available Not Available Not Available ciproflox acin 500 mg tablet take 1 tablet (500MG) by oral route twice a day for 3 days. active Not Available Not Available No t Available Metrogel Vaginal 0.75 % (37.5 mg/5 gram) insert 1 applicat orful by vaginal route for 5 nights at bedtime 11/24 completed Prescrib ed Elsewher e: No Locat ion: Pamela stokes [facility] odify By: anne-marie davies DateTime : 03/10/20 18 10:01:54 AM Not Available Not Available Not Available clotrimaz ole-betam ethasone 1 %-0.05 % topical cream APPLY TO THE AFFECTED AND SURROUND ING AREAS OF SKIN BY TOPICAL ROUTE 2 TIMES PER DAY IN THE MORNING AND EVENING FOR 2 WEEKS active Not Available Not Available No t Available Wellbutri n 75 mg tablet take 1 tablet (75MG) by oral route 3 times every day 01/07 completed Prescrib ed Elsewher e: No Locat ion: Pamela stokes [facility] odify By: francesco perez DateTime : 01/08/20 13 11:30:00 AM Not Available Not Available Not Available Wellbutri n 100 mg tablet take 1 tablet by oral route 2 times every day 03/08 completed Prescrib ed Elsewher e: Yes Loca tion: Pamela stokes [facility] odify By: francesco perez DateTime : 01/08/20 13 11:30:00 AM Not Available Not Available Not Available dextroamp hetamine- amphetami ne ER 30 mg 24hr capsule,e xtend release TAKE 1 CAPSULE BY MOUTH EVERY DAY active Not Available Not Available No t Available sertralin e 50 mg tablet TAKE 1 TABLET BY MOUTH EVERY DAY DIRECTED active Not Available Not Available No t Available Ortho-Cyc kenny (28) 0.25 mg-35 mcg tablet take 1 tablet by oral route every day 11/21 completed Prescrib ed Elsewher e: No Locat ion: [facility] odify By: candice pedroza DateTime : 03/14/20 16 03:05:37 PM Not Available Not Available Not Available nitrofura ntoin monohydra te/macroc rystals 100 mg capsule TAKE 1 CAPSULE BY MOUTH TWICE DAILY FOR 7 DAYS active Not Available Not Available No t Available calcium 04/01 completed Not Available Not Available Not Available Daily Vitamin 04/01 completed Not Available Not Available Not Available Adderall 12/31 completed Not Available Not Available Not Available Loestrin 24 Fe 1 mg-20 mcg (24)/75 mg (4) tablet take 1 tablet by oral route every day 03/08 completed Prescrib ed Elsewher e: No Locat ion: [facility]ify By: francesco perez DateTime : 12/24/19 13 01:37:35 PM Not Available Not Available Not Available FeroSul 325 mg (65 mg iron) tablet TAKE 1 TABLET BY MOUTH DAILY 12/31 completed Not Available Not Available Not Available tranexami c acid 650 mg tablet TAKE 2 TABLETS BY MOUTH THREE TIMES DAILY FOR 10 DAYS DIRECTED 12/31 completed Not Available Not Available Not Available Vitals Date Recorded Body height Provider Name an d Address Organization Details Last Updated DateTime 01/08/2022 162.56 cm Estefania Bull [facility] 01/08/2022 17:39:57 Date Recorded Body height Body mass index (BMI) Body weight Systolic blood pressure Diastolic blood pressure Provider Name and Address Organization Details Last Updated DateTime 01/09/2022 162.56 cm 29.4 kg/m2 79833.3 g 128 mm[Hg] 80 mm[Hg] Estefania Stacy [facility] 2 15:41:41 Date Recorded Body height Body mass index (BMI) Body weight Systolic blood pressure Diastolic blood pressure Provider Name and Address Organization Details Last Updated DateTime 05/30/2023 162.56 cm 28.3 kg/m2 39127.74 g 124 mm[Hg] 80 mm[Hg] Estefania Stacy [facility] 3 13:41:16 Date Recorded Body height Body mass index (BMI) Body weight Systolic blood pressure Diastolic blood pressure Provider Name and Address Organization Details Last Updated DateTime 04/01/2024 162.56 cm 26.8 kg/m2 02781.41 g 132 mm[Hg] 85 mm[Hg] Roxi [facility] 4 16:13:26 Date Recorded Body height Provider Name an d Address Organization Details Last Updated DateTime 04/07/2024 162.56 cm [facility] 04/07/2024 11:32:30 Social History Question Answer Notes LastModified by Organizat ion Details LastModified Time Tobacco Smoking Status Former Smoker Estefania Stacy [facility] 05/30/2023 13:32:22 Do You Have An Advance Directive? No Information not available 12/04/2021 What Is Your Level Of Alcohol Consumption? Occasional [email or web address] Information not available 11/24/2021 How Many Years Have You Consumed Alcohol? 20 Information not available 05/30/2023 Are You Blind Or Do You Have Difficulty Seeing? No [email or web address] Information not available 11/24/2021 What Is Your Level Of Caffeine Consumption? Moderate [email or web address] Information not available 11/24/2021 How Much Tobacco Do You Chew? None Information not available 01/09/2022 In The 14 Days Before Symptom Onset, Have You Had Close Contact With A Laboratory-confir med COVID-19 While That Case Was Ill? No [email or web address] Information not available 11/24/2021 In The 14 Days Before Symptom Onset, Have You Had Close Contact With A Person Who Is Under Investigation For COVID-19 While That Person Was Ill? No [email or web address] Information not available 11/24/2021 Have You Been To An Area Known To Be High Risk For COVID-19? No [email or web address] Information not available 11/24/2021 Are You Deaf Or Do You Have Serious Difficulty Hearing? No [email or web address] Information not available 11/24/2021 What Type Of Diet Are You Following? REGULAR [email or web address] Information not available 11/24/2021 What Is The Highest Grade Or Level Of School You Have Completed Or The Highest Degree You Have Received? 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 No Information not available 12/04/2021 Have You Ever Been Counseled For Unhealthy Alcohol Use? No Information not available 05/30/2023 Do You Use Protection During Sex? Usually Information not available 01/09/2022 Do You Use Your Seat Belt Or Car Seat Routinely? Yes [email or web address] Information not available 11/24/2021 Do You Have Smoke And Carbon Monoxide Detectors In Your Home? Yes [email or web address] Information not available 11/24/2021 At What Age Did You Start Smoking Tobacco? 16 Information not available 05/30/2023 How Much Tobacco Do You Smoke? No Information not available 12/04/2021 Do You Feel Stressed (tense, Restless, Nervous, Or Anxious, Or Unable To Sleep At Night)? [id number] Information not available 05/30/2023 Do You Use Any Illicit Or Recreational Drugs? No [email or web address] Information not available 11/24/2021 Do You Use Sunscreen Routinely? Yes [email or web address] Information not available 11/24/2021 Has Tobacco Cessation Counseling Been Provided? No Information not available 05/30/2023 How Many Years Have You Smoked Tobacco? 15 Information not available 05/30/2023 Have You Used IV Drugs? No Information not available 12/04/2021 Do You Or Have You Ever Used Any Other Forms Of Tobacco Or Nicotine? No Information not available 05/30/2023 Sex: Unknown Functional Status Question Answer Note LastModified by Organizat ion Details LastModified Time Do you have difficulty walking or climbing stairs? No Information not available 05/30/2023 Are you able to walk? YESWOREST [email or web address] Information not available 11/24/2021 Are you able to care for yourself? Yes Information not available 05/30/2023 What is your exercise level? Occasional [email or web address] Information not available 11/24/2021 Mental Status None recorded. Family History Relationship Description Onset Age of this Age Resolved Age Notes LastModified by Organization Details LastModified Time Maternal Grandfather Malignant tumor of prostate [email or web address] Not available 2023 15:59:24 Maternal Grandfather Heart disease Not available 2022 13:31:53 Mother Malignant tumor of breast Not available 2022 13:31:53 Mother Malignant tumor of colon Not available 2022 13:31:53 Paternal Aunt Malignant tumor of breast Not available 2022 13:31:53 Maternal Grandmother Diabetes mellitus Not available 2022 13:31:53 Maternal Uncle Cerebrovascu lar accident Not available 09/2022 13:31:53 Medical History Condition Response Allergies (Food, seasonal, environmental ) N Other N Breast Cancer N Drug/Latex Allergies/Reactions N Blood Transfusion N Dermatologic Disorders N Lung Disease N Defects or Inherited Disease N Breast Problem Y Gestational Diabetes N Hematologic disorders N Anesthesia Complications N History of STI N Deep Vein Thrombosis N Polycystic ovary syndrome N Anxiety Disorder Y Autoimmune disease N Arthritis N Infertility N Polyps N Acid Reflux (GERD) N History of abnormal pap Y Cancer N Stroke N Varicosities N Neurologic/Epilepsy N Endometriosis N High Cholesterol Y Headaches N Fibromyalgia N Kidney Disease N Heart Problems N Kidney or Bladder Problems N Thyroid Problems N GI Problems N Eating Disorder N Anemia N Art (IVF or FET) N Psychiatric Illness N Ovarian Cancer N Diabetes N Pulmonary (TB, Asthma) N Hepatitis/Liver Disease N No Past Medical History N Eczema N Urinary Tract Infection N Abuse/Domestic Violence N Asthma N Trauma/Violence N Depression/ depression Y Heart Disease N Pre-Eclampsia N Hypertension N Osteoporosis N Thrombophilias N Gynecological History Statement/Question Response Abnormal Pap Y Date of Last Mammogram 03/20/2015 Date of LMP On BCP's at Conception? N Was last menstrual period normal N STIs/STDs N Current Control Method Sterilizati on Age at First Child 20 Sexually Active? Y None Menses Monthly N Date of DEXA bone scan Age of first menstrual cycle 14 Date of Last Pap Smear 05/30/2023 Desired Control Method Ablation LMP Definite N Obstetrics History GPAL:G 2 P 2 0 0 2 Type Value Full Term 2 Living 2 Total 2 Past Encounters Encounter ID Performer Location Encounter Start Date Encounter Closed Date Diagnosis/Indication Diagnosis SNOMED-CT Code Diagnosis ICD10 Code Diagnosis Note [id number] Flores Looney , [facility] [address] [address] 11/24/2021 09:58:33 11/24/2021 12:41:08 test negative 898937089 Z32.02 Menorrhagia 993792026 D2 5.9 Today we agreed to update TVUS/Labs (req was given).We will attempt to lighten the flow with Lysteda.Ir on/colace was prescribed to help with the likely anemia (cravings for ice).Instr uctions were reviewed and counseled on these medication s.She is aware that her f/u will be a consultati on with Dr. Valdes to discuss likely surgical options for resolving this issue; and discuss US results. Understand ing verbalized & agreeable to plan of care. Patient is to contact office or go to nearest ED/Urgent care if fever >/= 100.1, pain, excessive bleeding, unusual drainage or swelling in area of concern; or experienci ng worsening sx's or new onset of concerning sx's. Understand ing verbalized . All questions answered to patient satisfacti on. Time spent in visit is a total of 30 mins with at least 50% of visit consisting of counseling and review of plan of care. [id number] [facility] [address] [address] 11/26/2021 15:57:29 11/27/2021 12:57:57 Uterine leiomyoma 53370605 D25.9 [id number] Naveen Valdes MD [facility] [address] [address] 12/04/2021 12:38:58 12/04/2021 17:44:40 Menorrhagia 331105491 N92.0 Uterine leiomyoma 915039 05 D25.9 Polyp of corpus uteri 11 001805 N84.0 This patient is a 46-year-ol d female presents for heavy vaginal bleeding. She has longstandi ng very heavy bleeding. Her menses are regular. However, they require double protection . Patient has accidents, getting blood on her bedding and clothing. Is affected work. She changes a pad or tampon every hour. She leaks blood around the pad and tampon. This bleeding has a profound impact on her quality of life and her activities of daily living. The patient reports severe dysmenorrh ea. her pain is profound and has caused her to miss work. Patient had ultrasound results. We reviewed the ultrasound results ensured images today. We spent over 45 minutes face-to-fa ce. She has a mass that prolapses into the cervix. It is 3 cm. She has uterine fibroids. There were multiple uterine fibroids that are small and on the periphery of the uterus. We reviewed her results and her symptoms in great detail. We talked about treatment options. We ran through medical treatments and surgical treatments . She definitely needs the cervical mass removed. This is possibly prolapsed fibroid or polyp. We also talked about endometria l ablation to treat her heavy bleeding. She would require a salpingect timo if that reschedule d. She is likely to proceed with ablation and salpingect timo. At this time will only schedule the hysterosco py with possible polypectom y. She will contact us if she was to proceed with salpingect timo and endometria l ablation. [id number] Naveen Valdes MD [facility] [address] [address] 12/27/2021 15:15:06 12/27/2021 15:49:01 Lesion of endometrium 3525820037 9101 N85.9 Menorrhagia 464199634 N9 2.0 Female sterilization 608 16934 Z30.2 this patient is a 46-year-ol d female with menorrhagi a, endometria l lesion, and unwanted fertility. We have agreed to perform laparoscop ic bilateral salpingect timo, hysterosco py with D&C and endometria l sampling and polypectom y and endometria l ablation. She understand s the risks, benefits, and alternativ es. She has completed the informed consent process and is ready to proceed. [id number] Estefania Stacy [facility] [address] [address] 01/08/2022 16:53:02 01/09/2022 14:48:40 Urinary symptoms [id number] R39.9 [id number] Naveen Valdes MD [facility] [address],[facility] [place] [address] 01/09/2022 15:31:20 01/09/2022 17:49:13 Dehiscence of surgical wound 45628350 T81.30XA This patient is a 46-year-ol d female presents for postop follow-up. She is 1 week postop from a hysterosco py D&C, endometria l ablation, salpingect timo. She is recovering normally with scaption of her infraumbil ical incision. It is tender. It bled yesterday, last night, today little bit. We placed a pressure dressing on it after was examined. It appears to be intact. There is glue covering it that is very firmly attached. We agreed to leave it alone at this time and use a pressure dressing and observe. Her other incisions are clean dry and intact. She is recovering normally otherwise. [id number] [facility] [address],[facility] [place] [address] 05/30/2023 13:20:58 05/30/2023 13:59:58 Gynecologic examination 27795461 Z01.419 Take Calcium with Vitamin D 12-1500mg daily. Do monthly self breast exams. It is advised to get annual flu shot in the fall and she could obtain at [facility] or [facility] care clinic. If you haven't received the Tdap vaccine in the last 10 years you should obtain one as well. Have mammogram yearly, bone density every 2-3 years and colonoscop y every 5-10 years depending on findings and history. Engage in daily exercise of low impact aerobic exercise 45-60 minutes 4-5 times weekly. Avoid tobacco and illicit drugs as well as using moderation with alcohol intake less than 1-2 8 oz beverages daily. This lifestyle behavior pattern will lead to less health conditions and longer life span. If BMI greater than 25 weight watchers or dietary consult advised. Questions have been answered. Patient appears to understand instructio ns, but if you have any further questions call or respond to this email Pap/hpv sentSTD ScreenGene tic ScreenColo n ScreenDexa ScreenRout ine LabsMammo- -PCP ordered Vaginitis 16148124 N76.0 BV suspected on examRx sent Counseled on medication R/B's, Most common side effects, & use. All questions were answered to patient satisfacti on. Discussed boric acid vaginal once weekly for prevention along with VCG's. [id number] Naveen Valdes MD [facility] [address] [address] 04/01/2024 15:59:14 04/01/2024 16:56:28 Urinary symptoms 686481283 R39.9 Vulvovaginitis 46907164 N76.0 48-year-ol d female with urinary urgency and vulvar pain with vaginal discharge. She has some erythema of the vulva. She has severe irritation . She has urinary urgency. She was examined. She has erythema over the medial vulva. She has white discharge. Swabs were obtained. She will be treated for urinary tract infection she has blood. She has bled on her urine dip. Treat for urinary tract infection and vulvovagin itis that is severe. She was given instructio ns and precaution s on the 2 different medication s. She was given risks, benefits, and alternativ es to the treatments . She we will treat. Acute urin autumn tract infection 410528275 N39.0 [id number] Roxi Xie [facility] [address] [address] 04/07/2024 11:01:41 04/07/2024 11:34:57 Urinary symptoms 975126343 R39.9 Acute urin autumn tract infection 103765612 N39.0 Health Concerns Section Related Observation LastModified by Organization Detai ls LastModified Time None Recorded Concern Status LastModified by Organization Details LastModified Time None Recorded Advance Directives Directive N: Payers Encounter Date Sequence Insurance Name Policy Number Policy Smith Covered Member ID Smith Member ID Guarantor Name 01/08/2022 1 [id number] Jorge Luis Moncada 01/09/2022 1 [facility] [id number] Jorge Luis Moncada 05/30/2023 1 [facility] [id number] Jorge Luis Moncada 04/01/2024 1 [facility] [id number] Jorge Luis Moncada 04/07/2024 1 [facility] [id number] Jorge Luis Moncada Notes Date Note Type Note Provider Name and Address Organization Details Recorded Time 01/09/2022 text/html This patient is a 46-year-old female presents for postop follow-up. She is 1 week postop from a hysteroscopy D&C, endometrial ablation, salpingectomy. She is recovering normally with scaption of her infraumbilical incision. It is tender. It bled yesterday, last night, today little bit. We placed a pressure dressing on it after was examined. It appears to be intact. There is glue covering it that is very firmly attached. We agreed to leave it alone at this time and use a pressure dressing and observe. Her other incisions are clean dry and intact. She is recovering normally otherwise. Naveen Valdes MD [address], [place], [address], [facility] 01/09/2022 17:40:18 05/30/2023 text/html Annual GYNReport ed bypatient.Menstrual cycle:Normal menses Urinary symptoms:No hematuria; No incontinence Vulva:No genital lesion Vagina:Foul-smelling ;Yellow-green, thick Breast:No breast pain; No breast lump; No nipple discharge Current Contraception:Satisf ied with current contraception; Tubal ligation (BS) Sexual complaints:No sexual complaints; No pain during intercourse; Normal libido Menopausal Symptoms:No menopausal symptoms; Normal vaginal lubrication Psychological symptoms:No depression; No anxiety; No PMDD Preventive measures:Encourage self breast examination; Encourage regular exercise; Encourage no tobacco use; Encourage regular mammograms starting age 40; Followed with yearly pap smears; Needs to schedule mammogram (PCP has ordered) Flores Looney OLIVER- [address], [place], [address], [facility] 05/30/2023 13:59:47 04/01/2024 text/html 48-year-old fema le with urinary urgency and vulvar pain with vaginal discharge. She has some erythema of the vulva. She has severe irritation. She has urinary urgency. She was examined. She has erythema over the medial vulva. She has white discharge. Swabs were obtained. She will be treated for urinary tract infection she has blood. She has bled on her urine dip. Treat for urinary tract infection and vulvovaginitis that is severe. She was given instructions and precautions on the 2 different medications. She was given risks, benefits, and alternatives to the treatments. She we will treat. Naveen Valdes MD [address], [place], [address], [facility] 04/01/2024 16:49:04 OBGyn Episode Ob Episode Information Episode Created Date Number of Fetuses Patient Bloodtype Patient rh Status Prepregnancy Weight lbs Domestic Partner Domestic Partner Phone Father Name Ornament Stapler Status 11/25/19 22 1 CLOSED Fetus Data First Name Last Name Admitted to NICU Weight (g) Sex Living Outcome Pediatric Complications Fetus ID Race Codes Race Delivery Type 3231.84 3 F Full Term [id number] Vaginal Delivery Chacorta Calculation Initial Chacorta Date Initial Exam Date Initial Exam Provider Initial Ultrasound Date Last Menstrual Period Date Ultra Sound Weeks Gestation 0 Eighteen To Twenty Week Chacorta Update Ultra Sound Date Fundal Height At Umbil Quickening Date Ultra Sound Latest Weeks Gestation Final Chacorta Confirmed By Final Chacorta Confirmed Date Final Chacorta Date Ultra Sound Latest Days Gestation 0 0 Menstrual History Last Menstrual Date Menses Monthly On Bcp Conception Prior Menses Frequency Hcg Plus Date Menarche Onset Age Delivery Information Delivery Date Delivery Type Labor Anesthesia Weeks Gestation Incision Type Labor Labor Length Hrs Delivered By Post Complications Tubal Sterilization Discharge Date Comments 6 40 Discharge Information Feeding Method Contraceptive Method Maternal HG B and HCT Levels Ob Episode Information Episode Created Date Number of Fetuses Patient Bloodtype Patient rh Status Prepregnancy Weight lbs Domestic Partner Domestic Partner Phone Father Name Ornament Stapler Status 11/25/19 22 1 CLOSED Fetus Data First Name Last Name Admitted to NICU Weight (g) Sex Living Outcome Pediatric Complications Fetus ID Race Codes Race Delivery Type 3912.23 1 M Full Term [id number] Vaginal Delivery Chacorta Calculation Initial Chacorta Date Initial Exam Date Initial Exam Provider Initial Ultrasound Date Last Menstrual Period Date Ultra Sound Weeks Gestation 0 Eighteen To Twenty Week Chacorta Update Ultra Sound Date Fundal Height At Umbil Quickening Date Ultra Sound Latest Weeks Gestation Final Chacorta Confirmed By Final Chacorta Confirmed Date Final Chacorta Date Ultra Sound Latest Days Gestation 0 0 Menstrual History Last Menstrual Date Menses Monthly On Bcp Conception Prior Menses Frequency Hcg Plus Date Menarche Onset Age Delivery Information Delivery Date Delivery Type Labor Anesthesia Weeks Gestation Incision Type Labor Labor Length Hrs Delivered By Post Complications Tubal Sterilization Discharge Date Comments 0 40 Discharge Information Feeding Method Contraceptive Method Maternal HG B and HCT Levels
--- OUTSIDE RECORDS SUMMARY | 2024-11-17 09:59 | XMS_ITS | Clinical Summary ---
Author Organization [facility] Address [address] [place] [address] Care Team Providers Care Hand Packer/Packager Name Role Phone Beka Marie MD Primary Care Provider [phone] Allergies Active Allergy Reactions Criticality Noted Date Comments Buspirone Hives Medium 11/26/2016 Sulfa (Sulfonamide Antibiotics) Hives Medium 08/2016 Medications Adderall XR 30 mg 24 hr capsule 08/21/2022 Activ e sertraline (ZOLOFT) 50 mg tablet 09/25/2022 Active Active Problems No known active problems Social History Tobacco Use Types Packs/Day Years Used Date Smoking Tobacco: Former Personal Safety Answer Date Recorded Getting School Help Needed Not on file 10/11 Comments No Sex and Gender Information Value Date Recorded Sex Assigned at Not on file 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 Gender Identity Not on file Sexual Orientation Not on file Obstetrics History Last Filed Vital Signs Vital Sign Reading Time Taken Comments Blood Pressure 110/78 03/25/2023 5:58 PM CDT Pulse 84 03/25/2023 5:58 PM CDT Temperature 36.9 C (98.5 F) 03/25/2023 5:58 PM CDT Respiratory Rate 16 03/25/2023 5:58 PM CDT Oxygen Saturation 99% 03/25/2023 5:58 PM CDT Inhaled Oxygen Concentration - - Weight 74.7 kg (164 lb 9.6 oz) 03/25/2023 5:58 P M CDT Height 162.4 cm (5' 3.94 ) 03/25/2023 5:58 PM CD T Body Mass Index 28.31 03/25/2023 5:58 PM CDT Plan of Treatment Health Maintenance Due Date Last Done Comments Breast Cancer Screening-Mammogram 1976 Cervical Cancer Screening 1976 Colon Cancer Screening-Colonoscopy 1976 Depression Screening 1976 Hepatitis C Screening 1976 DTaP/Tdap/Td Vaccine (1 - Tdap) 10/27/1987 Hepatitis B Screening 1994 Regular Well Visit/Exam 18-64 1994 Covid-19 Vaccine (3 - 2023-2 5 season) 2024 07/31/2021, 07/09/2021 Influenza Vaccine (Season Ended) 2025 05/07/2013 Pneumococcal vaccine <65 Aged Out No longer eligible based on patient's age to complete this topic [place] [address] [place] [id number] [employer] [address] [place] [id number] [place] [id number] Care Teams Hand Packer/Packager Relationship Specialty Start Date End Date Beka Marie MD [address] [place] [id number] PCP - General 01/09/17
--- OUTSIDE RECORDS SUMMARY | 2024-11-17 09:59 | XMS_ITS | Referral Summary ---
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
--- OUTSIDE RECORDS SUMMARY | 2024-11-17 09:59 | XMS_ITS | Clinical Summary ---
Author Organization [facility] Address [facility] [place] [address] Care Team Providers Care Emissions Inspector Name Role Phone Unavailable Primary Care Provider Unavailabl e Social History Tobacco Use Types Packs/Day Years Used Date Smoking Tobacco: Never Assessed Comments Unknown Sex and Gender Information Value Date Recorded Sex Assigned at Not on file Legal Sex Female 5:00 PM CDT Gender Identity Not on file Sexual Orientation Not on file Plan of Treatment Health Maintenance Due Date Last Done Comments Cervical Cancer Screening Pa p Smear (Age 30 to 64) Every 3 Years 1976 Colorectal Cancer Screening Colonoscopy (10 Years) 1976 Annual Physical 10/27/1979 Hepatitis C 1994 DTaP, Tdap and Td Vaccines ( 1 - Tdap) 10/27/1995 Hepatitis B Vaccines (1 of 3 - 19+ 3-dose series) 10/27/1995 Cervical Cancer Screening Pa p with HPV Testing (Age 30 to 64) Every 5 Years 2006 Cervical Cancer Screening with HPV 2006 Mammogram Screening 2016 COVID-19 Vaccine (2023-2 5 season) 2024 Meningococcal B Vaccine Aged Out No l onger eligible based on patient's age to complete this topic Meningococcal Vaccine Aged Out No travis jatinder eligible based on patient's age to complete this topic Pneumococcal Vaccine: Pediat rics (0 to 5 Years) and At-Risk Patients (6 to 49 Years) Aged Out No longer eligible b ased on patient's age to complete this topic RSV Immunizations Under 20 Months Aged Out No longer eligible based on patient's age to complete this topic
== END 2024-11-17 09:11 | disposition home or self-care (01) ==
PROVIDERS: PCP Nurse Practitioner Family; Visit Provider Obstetrics & Gynecology
DX: Z12.31 Encounter for screening mammogram for malignant neoplasm of breast (principal); R92.8 Other abnormal and inconclusive findings on diagnostic imaging of breast
CPT/HCPCS: 77063; 77067

== ENCOUNTER 2024-12-17 09:00 | Outpatient (CLI) | payer OTHER, SELFPAY ==
--- NOTE | ~2024-12-17 | MMUS_ITS ---
EXAMINATION: US breast BI complete, MM diagnostic joan BI w alina HISTORY: Follow-up bilateral breast masses. Follow-up indeterminate right breast calcifications. TECHNIQUE: Additional 3-D tomosynthesis images of the breasts were performed and synthetic 2-D images were generated. CAD analysis was submitted and interpreted. High resolution bilateral complete breas t ultrasound was performed. COMPARISON: Comparison to multiple prior studies sequentially, with oldest reviewed study dated 03/20. BREAST PARENCHYMAL COMPOSITION: Dense: The breasts are extremely dense, which lowers the sensitivity of mammography. FINDINGS: MAMMOGRAPHIC FINDINGS: There are multiple scattered masses which are obscured by dense fibroglandular tissue in both breasts . There are benign breast calcifications. The clustered calcifications in the right breast layer with mediolateral views, consistent with benign fibrocystic milk of calcium. ULTRASOUND: Complete US of all 4 quadrants of the breast/s and retroareolar region was reviewed. Right breast: There are multiple cysts of the right breast. At 12:00 in the subareolar location there is a slightly lobulated oval hypoechoic mass with heterogeneous internal echoes measuring 1.3 x 0.6 x 0.8 cm. No significant posterior features. There is an adjacent cyst measuring 1 cm. At 9:00, 3 cm from the nipple there is an oval hypoechoic mass with heterogeneous internal echotexture measuring 6 x 6 x 5 mm without internal vascularity or posterior features. The lateral margins are slightly irreg ular. Left breast ultrasound: There are multiple cysts of the left breast. No suspicious masses to suggest malignancy. IMPRESSION: 1. Slightly irregular shaped heterogeneous 6 mm mass of the right breast at 9:00, 3 cm from the nippl e. Ultrasound-guided right breast biopsy recommended. 2. Probable complicated cysts of the right breast at 12:00, in the subareolar location measuring 1.3 cm. 6 month follow-up Limited right breast ultrasound recommended. 3: No evidence for malignancy in the left breast. Benign findings. BI-RADS category 4, suspicious findings. Reviewed, dictated and finalized at location B. IMPRESSION: 1. Slightly irregular shaped heterogeneous 6 mm mass of the right breast at 9:0 0, 3 cm from the nipple. Ultrasound-guided right breast biopsy recommended. 2. Probable complicated cysts of the right breast at 12:00, in the subareolar l ocation measuring 1.3 cm. 6 month follow-up Limited right breast ultrasound rec ommended. 3: No evidence for malignancy in the left breast. Benign findings. BI-RADS category 4, suspicious findings.
--- OUTSIDE RECORDS SUMMARY | 2024-12-17 09:04 | XMS_ITS | Clinical Summary ---
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
--- OUTSIDE RECORDS SUMMARY | 2024-12-17 09:04 | XMS_ITS | Continuity of Care Document ---
Author Organization [facility] Address [address] [place] [address] [place] [address] Phone Care Team Providers Care Foley Artist Name Role Phone Souza OD, Beto Unavailable Unavailable Procedures Procedure Date Eye Exam & Treatment Refraction Office/outpatient Visit, Est Eye Exam & Treatment Refraction Advance Directives Directive Yes / No Effective Date File Name No Information Encounters Encounter Description Practice Location Reason(s) For Visit Diagnoses Date Provider Providers Copied on Encounter [facility], [address] [place] [address] [address], [place], [place], [id number], [place] tel:[phone] [facility] No Information 1-200 9 Souza OD Beto. [address] [facility] [place] , [address], [place], [place], [facility], [place]. tel:[phone] Office/outpat ient Visit, Est [facility], [address] [place] [address] [address], [place], [place], [id number], [place] tel:[phone] [facility] No Information 3-200 8 Souza OD Beto. [address] [facility] [address] , [address], [place], [place], [facility], [place]. tel:[phone] [facility], [address], [place], [place], [address], tel:[phone] [facility] No Information Morris-2 6-200 7 Souza OD Beto. [address] [employer] [employer] [address] , [address], [place], [address], [place]. tel:[phone] Family History Family Member Type Diagnosis Age At Onset No Information Payers Payer name Insurance type Covered republican ID Authorros arnett(s) Medicaid [facility] [id number] Social History Type Description Quantity Date Captured Comments Sex Female Smoking Status No Information Chief Complaint And Reason For Visit No Information Reason For Referral Reason For Referral No Information History Of Present Illness Encounter Date Complaint History Of Prese nt Illness No Information Functional Status Date Functional Assessmen t No Information Instructions Date Instruction Additional Infor mation No Information Assessments Type Assessment Date No Information Patient Care Teams Name Effective Dates (start - stop) Status Members No Information
--- OUTSIDE RECORDS SUMMARY | 2024-12-17 09:04 | XMS_ITS | Referral Summary ---
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
--- OUTSIDE RECORDS SUMMARY | 2024-12-17 09:04 | XMS_ITS | Continuity of Care Document ---
Author Organization [facility] Address [address] [facility] [place] [address] [place] [address] Phone Care Team Providers Care Supervisor Production Name Role Phone Srinivas Chowdhury MD Unavailable Unavailable Allergies, Adverse Reactions, Alerts Substance Reaction Status Criticality buspirone Active No Information Medications Medication Instructions Dosage Effective Dates (start - stop) Status Comments Zantac 150 mg tablet take 1 tablet by or al route 2 times every day - Active Procedures Procedure Date OFFICE/OUTPATIENT VISIT, EST OFFICE/OUTPATIENT VISIT, EST OFFICE/OUTPATIENT VISIT, EST OFFICE/OUTPATIENT VISIT, EST OFFICE/OUTPATIENT VISIT, EST PREV VISIT, NEW, AGE 18-39 Advance Directives Directive Yes / No Effective Date File Name No Information Encounters Encounter Description Practice Location Reason(s) For Visit Diagnoses Date Provider Providers Copied on Encounter [facility], [address] [place], [id number], tel:[phone] [facility] No Information 5 Trenton Espino. [address], [address], [address] , [place]. tel:[phone] Referring Provider: Srinivas Chowdhury, [address], [place], [place], [address]. tel:[phone] OFFICE/OUTPA TIENT VISIT, EST [facility], [address], [place], [place], [address], tel:[phone] [facility] Medicine hypothyroidism (chief complaint)diarr hea (chief complaint)abd pain (chief complaint)butto ck pain (chief complaint) Unspecified disorder of thyroidAbdomin al painLumbagoDia rrhea Mar- 5 Trenton Espino. [address], [address], [place], [place], [address] , [place]. tel:[phone] Referring Provider: Leila [address], [place], [place], [address]. tel:[phone] OFFICE/OUTPA TIENT VISIT, [facility] [place], [address], [place], [place], [address], [place] tel:[phone] [facility] tailbone pain (chief complaint)hyopt hyroidism (chief complaint)depre ssion (chief complaint) Buttock painOther specified disorders of thyroidChronic depression Mar- 5 Trenton Espino. [address], [address], [place], [place], [address] , [place]. tel:[phone] Referring Provider: Leila [address], [place], [place], [address]. tel:[phone] OFFICE/OUTPA TIENT VISIT, [facility] [place], [address], [place], [place], [address], [place] tel:[phone] [facility] hypothyroidism (chief complaint)Depre ssion (chief complaint)ADD (chief complaint)cold (chief complaint) Acute upper respiratory infectionHypot hyroidismAtten tion deficit disorder of childhood without mention of hyperactivityC hronic depression 5 Trenton Espino. [address], [address], [place], [place], [address] , [place]. tel:[phone] Referring Provider: Leila [address], [place], [place], [address]. tel:[phone] OFFICE/OUTPA TIENT VISIT, [facility] [place], [address], [place], [place], [address], [place] tel:[phone] [facility] anxiety (chief complaint)palpi tation (chief complaint) Generalized anxiety disorderPalpit ationsThyroid disorder 5 Trenton Espino. [address] [facility] [address], [place], [place], [address] , [place]. tel:[phone] Referring Provider: Srinivas Chowdhury, [facility], [place], [place], [address]. tel:[phone] OFFICE/OUTPA TIENT VISIT, EST [facility], [address], [place], [address], tel:[phone] [facility] dizziness (chief complaint)hypot hyroidism (chief complaint)anxie ty (chief complaint)chest pain (chief complaint) Chest painDizzinessG eneralized anxiety disorderHypoth yroidism 5 Trenton Espino. [address], [facility] A, [place], [place], [address] , [place]. tel:[phone] Referring Provider: Srinivas Chowdhury [address] [facility], [place], [place], [address]. tel:[phone] PREV VISIT, NEW, AGE 18-39 [facility], [facility] [address], [place], [place], [address], [place] tel:[phone] [facility] Physical (chief complaint) Routine Medical ExamRoutine Medical Exam 5 Trenton Espino. [address], [facility] [address], [place], [place], [address] , [place]. tel:[phone] Family History Family Member Type Diagnosis Age At Onset Brother Problem (finding) Alive and well Mother Problem (finding) Alive and well Father Problem (finding) Alive and well Payers Payer name Insurance type Covered constitution party ID Authoriza tion(s) No Information Social History Type Description Quantity Date Captured Comments Sex Female Smoking Status No Information Chief Complaint And Reason For Visit No Information Plan Of Treatment Date Type Action Status Referral Ordered: Som Farley (related to Lumbago) ordered Referral Referred To: Som Farley [address] [place], [phone] Ordered: Referrals: Som Farley. Evaluate and treat ordered Referral Ordered: US EXAM, ABDOM, COMPLETE ordered Referral Ordered: AP PELVIS AND BILATERAL HIPS XRAY ordered Referral Ordered: US THYROID ordered Referral Ordered: CARDIOVASCULAR STRESS TEST ordered History Of Present Illness Encounter Date Complaint History Of Prese nt Illness hypothyroidism Pt states that s he feels eye pain and could not sleep and she went to ER and her TSH is fine but T4 slightly over. Pt was instructed by ER MD to stop synthroid. Pt stopped synthroid and feels better now. Pt denies any chest pain or headache diarrhea Additional infor mation: PT recently had some nonspecific diarrhea with green stool and she told me her diarrhea stopped now and she feels constipated. Last BM this AM and ok per patient. abd pain Pt states that s he has some vague right upper quadrant pain for several days. Pt denies any worsening pain with food Pt denies any nauea, vomiting. Pt feels some heartburn also for several days. buttock pain Pt notices dull right buttock pain for 4 weeks. Pt denies any injury. Pt states that the pain is there all the time. Pt denies any rash. Pt denies any back pain or any sciatica. Pt denies any numbness hyopthyroidism Pt has been taki ng synthroid but has not noticed any difference. Pt has not done ultrasound yet tailbone pain Pt c/o pain arou nd right buttock area radiating to the top of her gluteal fold for 3 years, Pt had mole removed around area and she has been having pain since the proceudre 3 years ago. Pt states that pain is getting worse lately. Pt denies any injury. Pt c/o sharp pain. Pt denies any numbness Pt denies any drainage .Pt sometimes feels dullache also. Pt states that sitting or standing does not make any differnce. Pt denies any low back pain Pt denies any sciatica, pt states that the pain is getting worse during last two weeks. Pt denies any injury depression The patient pres ents with anxious/fearful thoughts but denies fatigue. The patient denies any vomiting. Additional information: Pt has depression and anxiety. Pt is seeing psychiatrist and is taking prozac and adderall now. Pt feels more fatigue and down since taking prozac. Pt denies any suicidal or homcidial thought. hypothyroidism Pt has hypothyro idism. Pt does feel fatigue and some weight gain. pt kan any more palpitation or chest pain Depression The patient pres ents with anxious/fearful thoughts and fatigue. The Depression is associated with weight gain. The patient denies any headache, urinary frequency and vomiting. Additional information: Pt has anxiety and depression. Pt states that she feels bad again. Pt states that her anxiety is not getting any better. Pt denies any suicidal or homicidal thought. Pt wants to get back on some sort of depression meds. ADD Pt has ADD. Pt h as poor focus and poor concentration and poor motivation. Pt used to take adderall. cold Pt c/o sneezing, running nose, sinus congestion with yellow drainage and chest congestion and heavy cough for one week Pt denies any fever or recent travel. Pt has not tried OTC meds yet palpitation Pt has mild palp itation and atypical chest pain maybe once every two weeks. Pt denies any exertional symptoms Pt had benign EtT and cardiac echo. Pt states that it is happening much less frequent now. Pt denies any acute symptoms anxiety The patient does not present with anxious/fearful thoughts or fatigue. The patient denies any headache, nausea, urinary frequency, vomiting and weight gain. Additional information: Pt has mild anxiety without depression. Pt stopped wellbutrin and buspar and xanax. Pt is doing ok. Pt denies any suicidal thought. anxiety Additional infor mation: PT has anxiety and panict attacks. Pt also has depression. Pt is taking wellbutrin and xanax PRN now. Pt states that her depression is well controlled but anxiety is very bad still. Pt denies any suicidal thought. chest pain The patient pres ents with a complaint of chest pain. Pt notices intermittent chest pain along panic attacks. Pt denies any exertional chest pain. Pt notices occassional palpitation. Pt denies any acute symptosm. Pt states that the chest symptoms always ele together with panic feeling. Pt denies any SOB. dizziness Additional infor mation: Pt has intermittent dizziness and sense of panic and ? presyncope. No vertigo. Pt notices mild unbalanced. Pt notices the feeling daily and last few mins to severa hours. Pt denies any relation to activity. Someimtes it happens while sitting there or driving. Pt notices tinnitus and some ear popping also. hypothyroidism Pt has low hypot hyroidism Instructions Date Instruction Additional Infor mation No Information Assessments Type Assessment Date No Information
--- OUTSIDE RECORDS SUMMARY | 2024-12-17 09:04 | XMS_ITS | Data Portability ---
Author Organization [facility] Address [address] [place] [address] Care Team Providers Care Driller And Reamer Name Role Phone GAMALETA ZUÑIGA Primary Care Provider [phone] Assessment Encounter Date Assessment Date Assessment LastModified by Organization Details LastModified Time 05/30/2023 05/30/2023 Annual gynecological exam performed. Patient will come back in a year unless there are new symptoms. Not available 05/30/2023 13:31:08 11/24/2024 11/24/2024 Annual gynecological exam performed. Patient will come back in a year unless there are new symptoms. [email or web address] Not available 11/24/2024 09:42:18 Plan of Treatment Reminders Order Date Submit Date Provider Last Modified By Organization Details Last Modified Time Details Appointments None recorded. Lab hormone panel, serum or plasma 2024 025 [facility] (Lab), [address], [place], [address], 5 05:13:04 urinalysis, dipstick 2024 025 [facility], [place], [address], 10:23:27 culture, urine 2024 025 [facility] (Lab), [address], [place], [address], 5 21:51:42 CT + NG + TV, RNA, unspecified specimen 2024 025 [facility] (Lab), [address], [place], [address], 5 21:51:41 urinalysis, dipstick 2023 024 [email or web address] [address], [address], [place], [address], 4 11:33:17 culture, urine 2023 024 [facility] (Lab), [address], [place], [address], 4 20:16:42 urinalysis, dipstick 2023 024 [email or web address] [address], [address], [place], [address], 4 16:22:02 Referral None recorded. Procedures None recorded. Surgeries None recorded. Imaging None recorded. Medication Orders Macrobid 100 mg capsule 2023 025 [facility] #[id number], [address], [place], [id number], 5 09:42:42 Cipro 500 mg tablet 2023 025 [facility] #[id number], [address], [place], [id number], 5 09:42:08 Diflucan 150 mg tablet 2023 025 [facility] #[id number], [address], [place], [id number], 5 09:42:19 clotrimazol e-betametha sone 1 %-0.05 % topical cream 2023 025 [facility] #[id number], [address], [place], [id number], 5 09:42:22 metronidazo le 500 mg tablet 2022 024 [facility] #03133, [address], [place], [id number], 4 16:14:10 Patient TargetsNo targets recorded. Patient InstructionsNo instructions recorded. Reason for Referral None Reported. Results Created Date Observation Date Name Description Value Unit Range Abnormal Flag Note LastModifiedBy Organization Detail LastModifiedTime 12/20/19 22 12/19/2021 CBC W/DIF F WBC 4.4 10'3/ uL 3.6-10 .2 Not Available [facility] (Lab) [address] [place], [address], 12/20/2021 03:54:20 12/20/19 22 12/19/2021 CBC W/DIF F RBC 4.30 10'6/ uL (based on docume nted legal sex) 4.10-5 .30 Not Available [facility] (Lab) [address] [place], [address], 12/20/2021 03:54:20 12/20/19 22 12/19/2021 CBC W/DIF F HGB 9.7 g/dL (based on docume nted legal sex) 11.9-1 5.8 low Not Available [facility] (Lab) [address] [place], [address], 12/20/2021 03:54:20 12/20/19 22 12/19/2021 CBC W/DIF F HCT 34.3 % (based on docume nted legal sex) 37.4-4 8.3 low Not Available [facility] (Lab) [address] [place], [address], 12/20/2021 03:54:20 12/20/19 22 12/19/2021 CBC W/DIF F MCV 80.0 fL 82.0-9 9.0 low Not Available [facility] (Lab) [address], [place], [address], 12/20/2021 03:54:20 12/20/19 22 12/19/2021 CBC W/DIF F MCH 23.0 pg 27.0-3 3.0 low Not Available [facility] (Lab) [address], [place], [address], 12/20/2021 03:54:20 12/20/19 22 12/19/2021 CBC W/DIF F MCHC 28.0 g/dL 32.0-3 6.0 low Not Available [facility] (Lab) [address], [place], [address], 12/20/2021 03:54:20 12/20/19 22 12/19/2021 CBC W/DIF F RDW 23.0 % 11.0-1 5.0 high Not Available [facility] (Lab) [address], [place], [address], 12/20/2021 03:54:20 12/20/19 22 12/19/2021 CBC W/DIF F plt 483 10'3/ uL 150-45 0 high Not Available [facility] (Lab) [address], [place], [address], 12/20/2021 03:54:20 12/20/19 22 12/19/2021 CBC W/DIF F MPV 9.6 fL 9.8-12 .7 low Not Available [facility] (Lab) [address] [place], [address], 12/20/2021 03:54:20 12/20/19 22 12/19/2021 CBC W/DIF F NRBC's 0.00 % 0 Not Available [facility] (Lab) [address], [place], [address], 12/20/2021 03:54:20 12/20/19 22 12/19/2021 CBC W/DIF F absolute NRBCs 0.0 10'3/ uL 0 Not Available [facility] (Lab) [address] [facility], [place], [address], 12/20/2021 03:54:20 12/20/19 22 12/19/2021 CBC W/DIF F neutrophils 55.0 % 37.0-7 2.0 Not Available [facility] (Lab) [address] [facility], [place], [address], 12/20/2021 03:54:20 12/20/19 22 12/19/2021 CBC W/DIF F lymphocytes 32.0 % 16.0-4 8.0 Not Available [facility] (Lab) [address] [facility], [place], [address], 12/20/2021 03:54:20 12/20/19 22 12/19/2021 CBC W/DIF F monocytes 8.0 % 4.0-14 .0 Not Available [facility] (Lab) [address] [facility], [place], [address], 12/20/2021 03:54:20 12/20/19 22 12/19/2021 CBC W/DIF F eosinophils 3.0 % 0.0-9. 0 Not Available [facility] (Lab) [address] [place], [address], 12/20/2021 03:54:20 12/20/19 22 12/19/2021 CBC W/DIF F basophils 2.0 % 0.0-2. 0 Not Available [facility] (Lab) [address] [place], [address], 12/20/2021 03:54:20 12/20/19 22 12/19/2021 CBC W/DIF F immature granulocytes 0.0 % no define d refere nce range Not Available [facility] (Lab) [address] [place], [address], 12/20/2021 03:54:20 12/20/19 22 12/19/2021 CBC W/DIF F absolute neutrophils 2.4 10'3/ uL 1.1-6. 0 Not Available [facility] (Lab) [address] [place], [address], 12/20/2021 03:54:20 12/20/19 22 12/19/2021 CBC W/DIF F absolute lymphocytes 1.4 10'3/ uL 0.7-3. 4 Not Available [facility] (Lab) [address] [facility], [place], [address], 12/20/2021 03:54:20 12/20/19 22 12/19/2021 CBC W/DIF F absolute monocytes 0.4 10'3/ uL 0.3-1. 0 Not Available [facility] (Lab) [address] [place], [address], 12/20/2021 03:54:20 12/20/19 22 12/19/2021 CBC W/DIF F absolute eosinophils 0.2 10'3/ uL 0.0-0. 6 Not Available [facility] (Lab) [address] [place], [address], 12/20/2021 03:54:20 12/20/19 22 12/19/2021 CBC W/DIF F absolute basophils 0.1 10'3/ uL 0.0-0. 1 Not Available [facility] (Lab) [address] [place], [address], 12/20/2021 03:54:20 12/20/19 22 12/19/2021 CBC W/DIF [...] resul ts are expec nhung. Not Available [facility] (Lab) [address] [facility], [place], [address], 12/20/2021 03:54:20 12/20/19 22 12/19/2021 TOM TIN / IRON / TRANS TOM N / TIBC iron 10 ug/dL 40-170 low Not Available [facility] (Lab) [address] [facility], [place], [address], 12/20/2021 03:54:20 12/20/19 22 12/19/2021 TOM TIN / IRON / TRANS TOM N / TIBC transferrin 297 mg/dL 200-36 0 Not Available [facility] (Lab) [address] [facility], [place], [address], 12/20/2021 03:54:20 12/20/19 22 12/19/2021 TOM TIN / IRON / TRANS TOM N / TIBC ferritin 13.0 NG/mL 8.0-25 2.0 Not Available [facility] (Lab) [address] [facility], [place], [address], 12/20/2021 03:54:20 12/20/19 22 12/19/2021 TOM TIN / IRON / TRANS TOM N / TIBC TIBC 416 ug/dL 250-45 0 Not Available [facility] (Lab) [address] [facility], [place], [address], 12/20/2021 03:54:20 12/20/19 22 12/19/2021 TOM TIN / IRON / TRANS TOM N / TIBC iron saturation 2 % 20-55 low Not Available [facility] (Lab) [address] [facility], [place], [address], 12/20/2021 03:54:20 01/09/20 22 01/08/2022 CULTU RE: URINE result report SEE RESULT S BELOW Test: Cultu re: Urine Speci men Sourc e: Urine Voide d Speci men Type: Urine Speci men Date: 2021 4:56 PM Resul t Date: 2021 10:29 PM Resul t Statu s: Final resul t Abnor mal: No Resul ting Lab: [facility] [address] [facility] [address] Tel: CULTU RE ----- ----- ----- --- No growt h in 1 day (dete ction level of 10,00 0 colon ies / ml.) Not Available [facility] (Lab) [address], [place], [address], 01/09/2022 23:33:27 01/09/20 22 01/08/2022 urina lysis , dipst ick Leukocytes ++ Not Available [facility] shira [address], [place], [address], 01/08/2022 17:33:52 01/09/20 22 01/08/2022 urina lysis , dipst ick Nitrite NEGATI VE Not Available [place] [address], [place], [address], 01/08/2022 17:33:52 01/09/20 22 01/08/2022 urina lysis , dipst ick Urobilinogen NEGATI VE Not Available [facility] [address], [place], [address], 01/08/2022 17:33:52 01/09/20 22 01/08/2022 urina lysis , dipst ick Protein TRACE Not Available [facility] [address], [place], [address], 01/08/2022 17:33:52 01/09/20 22 01/08/2022 urina lysis , dipst ick pH 6 Not Available [facility] [address], [place], [address], 01/08/2022 17:33:52 01/09/20 22 01/08/2022 urina lysis , dipst ick Blood +++ Not Available [facility] [address], [place], [address], 01/08/2022 17:33:52 01/09/20 22 01/08/2022 urina lysis , dipst ick Specific [place] 1.000 Not Available [facility] [address], [place], [address], 01/08/2022 17:33:52 01/09/20 22 01/08/2022 urina lysis , dipst ick Ketone NEGATI VE Not Available [facility] [address], [place], [address], 01/08/2022 17:33:52 01/09/20 22 01/08/2022 urina lysis , dipst ick Bilirubin NEGATI VE Not Available [facility] [address], [place], [address], 01/08/2022 17:33:52 01/09/20 22 01/08/2022 urina lysis , dipst ick Glucose NEGATI VE Not Available [facility] [address], [place], [address], 01/08/2022 17:33:52 01/09/20 22 01/08/2022 urina lysis , dipst ick Appearance CLOUDY Not Available [facility] shira [address], [place], [address], 01/08/2022 17:33:52 01/09/20 22 01/08/2022 urina lysis , dipst ick Color PINK Not Available [facility] [address], [place], [address], 01/08/2022 17:33:52 05/30/20 23 05/30/2023 IMAGE GUIDE D PAP AND HPV REGAR DLESS image guided Pap, HPV regardless of Pap result SEE RESULT S BELOW CASE REPOR T: Cytol ogy Gynec ologi madison Repor t Case: [id number] Autho ja roberts Provi alena: Deneen hayes , Qing Edge cted: 05/30 1513 HABILITATION ASSISTANT Order ing Locat ion: [place] [facility] Recei robby: 05/31 0212 First Scree n: Dyan Hodges , CT Speci men: Bry tidwell Pap - Image d, Cervi x STATE MENT OF ADEQU ACY: Satis facto ry for evalu ation Trans forma tion zone compo nent prese nt FINAL DIAGN OSIS: Negat edgardo for Intra epith elial Saba shelby or Johnnie scott (NIL) . Elect phong mata swapna d by Dyan Hodges , CT on [...] Neopl kt (if appli cable ): Signi ficmarianne t Clini madison Findi ngs: Other Histo [...] madison and/o r histo rical findi ngs, furth er inves tigat ion is recom leah d, as clini clyde barroso nted. Not Available [facility] (Lab) [address] [place], [address], 06/03/2023 15:36:14 04/01/20 24 04/01/2024 VAGIN ITIS/ VAGIN OSIS, DNA PROBE tato sp. detection, direct probe Negati ve negati ve Not Available [facility] (Lab) [address] [place], [address], 04/03/2024 07:21:51 04/01/20 24 04/01/2024 VAGIN ITIS/ VAGIN OSIS, DNA PROBE gardnerella vag. detection, direct probe Negati ve negati ve Not Available [facility] (Lab) [address] [place], [address], 04/03/2024 07:21:51 04/01/20 24 04/01/2024 VAGIN ITIS/ VAGIN OSIS, DNA PROBE trichomonas vag. detection, direct probe Negati ve negati ve Not Available [facility] (Lab) [address] [place], [address], 04/03/2024 07:21:51 04/01/20 24 04/01/2024 CULTU RE: URINE result report SEE RESULT S BELOW Test: Cultu re: Urine Speci men Sourc e: Urine - Clean Catch Speci men Type: Urine Speci men Date: 1645 Resul t Date: 0618 Resul t Statu s: Final resul t Abnor mal: No Resul ting Lab: [facility] [address] [facility] [address] Tel: CULTU RE ----- ----- ----- --- No growt h in 1 day (dete ction level of 10,00 0 colon ies / ml.) Not Available [facility] (Lab) [address] [facility], [place], [address], 04/03/2024 07:21:52 04/01/20 24 04/01/2024 urina lysis , dipst ick Protein + Not Available [facility] [address], [place], [address], 04/01/2024 16:18:52 04/01/20 24 04/01/2024 urina lysis , dipst ick pH 5 Not Available [facility] [address], [place], [address], 04/01/2024 16:18:52 04/01/20 24 04/01/2024 urina lysis , dipst ick Blood + Not Available [facility] [address], [place], [address], 04/01/2024 16:18:52 04/01/20 24 04/01/2024 urina lysis , dipst ick Specific [place] 1.020 Not Available [facility] [address], [place], [address], 04/01/2024 16:18:52 04/07/20 24 04/07/2024 CULTU RE: URINE result report SEE RESULT S BELOW Test: Cultu re: Urine Speci men Sourc e: Urine - Clean Catch Speci men Type: Urine Speci men Date: 2023 1123 Resul t Date: 2023 1914 Resul t Statu s: Final resul t Abnor mal: No Resul ting Lab: [facility] [address] [facility] [address] Tel: CULTU RE ----- ----- ----- --- No growt h in 1 day (dete ction level of 10,00 0 colon ies / ml.) Not Available [facility] (Lab) [address], [place], [address], 04/08/2024 20:16:42 04/07/20 24 04/07/2024 urina lysis , dipst ick Leukocytes + Not Available [facility] [address], [place], [address], 04/07/2024 11:32:48 04/07/20 24 04/07/2024 urina lysis , dipst ick Protein + Not Available [facility] [place] [address], [place], [address], 04/07/2024 11:32:48 04/07/20 24 04/07/2024 urina lysis , dipst ick pH 6 Not Available [facility] [address], [place], [address], 04/07/2024 11:32:48 04/07/20 24 04/07/2024 urina lysis , dipst ick Blood + Not Available [facility] [address], [place], [address], 04/07/2024 11:32:48 04/07/20 24 04/07/2024 urina lysis , dipst ick Specific [place] 1.000 Not Available [facility] [place] [address], [place], [address], 04/07/2024 11:32:48 04/07/20 24 04/07/2024 urina lysis , dipst ick Ketone + Not Available [facility] [address], [place], [address], 04/07/2024 11:32:48 11/25/19 25 11/24/2024 FSH, LH, ESTRA DIOL estradiol 155.0 pg/mL This assay was perfo rmed using [employer] reage nts and test kits. Value s obtai pedro with other assay metho ds or kits canno t be used [facility] . Femal e Estra diol Range s: Folli cular phase 12.4- 233 pg/mL Ovula tion phase 41.0- 398 pg/mL Lutea l phase 22.3- 341 pg/mL Postm enopa usal <5-13 8 pg/mL Healt hy Pregn ant Women 1st Trime ster 154-3 243 pg/mL 2nd Trime ster 1561- 35086 pg/mL 3rd Trime ster 8525- >3000 0 pg/mL Not Available [facility] (Lab) [address] [place], [address], 11/25/2024 05:13:04 11/25/19 25 11/24/2024 FSH, LH, ESTRA DIOL FSH 5.9 mIU/m L This assay was perfo rmed using [employer] reage nts and test kits. Value s obtai pedro with other assay metho ds or kits canno t be used [facility] . Femal es Folli cular : 3.5-1 2.5 mIU/m L Ovula tion: 4.7-2 1.5 mIU/m L Lutea l: 1.7-7 .7 mIU/m L Postm enopa use: 25.8- 134.8 mIU/m L Not Available [facility] (Lab) [address] [place], [address], 11/25/2024 05:13:04 11/25/19 25 11/24/2024 FSH, LH, ESTRA DIOL LH 9.4 mIU/m L This assay was perfo rmed using [employer] reage nts and test kits. Value s obtai pedro with other assay metho ds or kits canno t be used inter fung eably . Femal es Mid-F ollic ular: 2.4-1 2.6 mIU/m L Mid-C ycle: 14.0- 95.6 mIU/m L Mid-L uteal : 1.0-1 1.4 mIU/m L Postm enopa use: 7.7-5 8.5 mIU/m L Not Available [facility] (Lab) [address] [facility], [place], [address], 11/25/2024 05:13:04 11/25/19 25 11/24/2024 CT/GC AND TRICH OMONA S VAGIN GIA (RRNA ), URINE chlamydia trachomatis, PCR Negati ve negati ve Not Available [facility] (Lab) [address] [place], [address], 11/25/2024 21:51:41 11/25/19 25 11/24/2024 CT/GC AND TRICH OMONA S VAGIN GIA (RRNA ), URINE neisseria gonorrhoeae, PCR Negati ve negati ve Not Available [facility] (Lab) [address] [facility], [place], [address], 11/25/2024 21:51:41 11/25/19 25 11/24/2024 CT/GC AND TRICH OMONA S VAGIN GIA (RRNA ), URINE trichomonas vaginalis ribosomal RNA (rrna) Negati ve negati ve Not Available [facility] (Lab) [address] [place], [address], 11/25/2024 21:51:41 11/25/19 25 11/24/2024 CULTU RE: URINE result report SEE RESULT S BELOW Test: Cultu re: Urine Speci men Sourc e: Urine - Clean Catch Speci men Type: Urine Speci men Date: 2024 0928 Resul t Date: 2046 Resul t Statu s: Final resul t Abnor mal: No Resul ting Lab: [facility] [address] [facility] [address] Tel: CULTU RE ----- ----- ----- --- No growt h in 1 day (dete ction level of 10,00 0 colon ies / ml.) Not Available [facility] (Lab) [address] [facility], [place], [address], 11/25/2024 21:51:42 11/25/19 25 11/24/2024 urina lysis , dipst ick Leukocytes - Not Available [facility] [place] [place] [address], [place], [address], 11/24/2024 10:22:39 11/25/19 25 11/24/2024 urina lysis , dipst ick Nitrite - Not Available [facility] [address], [place], [address], 11/24/2024 10:22:39 11/25/19 25 11/24/2024 urina lysis , dipst ick Urobilinogen - Not Available [facility] yeni [address], [place], [address], 11/24/2024 10:22:39 11/25/19 25 11/24/2024 urina lysis , dipst ick Protein trace Not Available [facility] [address], [place], [address], 11/24/2024 10:22:39 11/25/19 25 11/24/2024 urina lysis , dipst ick pH 5 Not Available [facility] [address], [place], [address], 11/24/2024 10:22:39 11/25/19 25 11/24/2024 urina lysis , dipst ick Specific [place] 1.020 Not Available [facility] [place] [place] [address], [place], [address], 11/24/2024 10:22:39 11/25/19 25 11/24/2024 urina lysis , dipst ick Ketone - Not Available [facility] [address], [place], [address], 11/24/2024 10:22:39 11/25/19 25 11/24/2024 urina lysis , dipst ick Bilirubin - Not Available [facility] [address], [place], [address], 11/24/2024 10:22:39 11/25/19 25 11/24/2024 urina lysis , dipst ick Glucose - Not Available [facility] [address], [place], [address], 11/24/2024 10:22:39 11/25/19 25 11/24/2024 urina lysis , dipst ick Appearance clear Not Available [facility] [place] [place] [address], [place], [address], 11/24/2024 10:22:39 11/25/19 25 11/24/2024 urina lysis , dipst ick Color light yellow Not Available [facility] [address], [place], [address], 11/24/2024 10:22:39 11/18/19 25 11/17/2024 MAMMO , scree diann, bilat eral No observ ation record ed. [email or web address] [place] [address] [place], [address], 11/23/2024 17:34:50 Result Notes None recorded. Procedures Surgical History Date Name Laterality Status Provider Name and Address Organization Details Recorded Time 04/23/20 25 Date of Last Mammogram completed [facility] 11/24/2024 09:50:34 05/30/20 23 Date of Last Pap Smear completed Roxi Xie [facility] 04/01/2024 16:14:05 01/03/20 22 HYSTEROSCOPY, WITH ENDOMETRIAL ABLATION (SURG) completed Inga Fuentes [facility] 01/03/2022 11:36:53 06/27/20 15 cholecystectomy completed [facility] 11/24/2021 10:21:27 07/28/19 05 excision of benign tumor of breast completed [facility] 11/24/2021 10:21:13 07/28/19 03 extraction of wisdom tooth completed [facility] 11/24/2021 10:21:35 Breast Biopsy completed Estefania Stacy [facility] 12/04/2021 12:42:33 Tubal Ligation completed [facility] 11/24/2024 09:41:25 Cholecystectomy completed [facility] 11/24/2024 09:41:25 Imaging Results Imaging Date Name Status LastModified by Organiz ation Details LastModified Time 11/17/2024 MAMMO, screening, bilateral completed [email or web address] [facility] [address] [place], [address], 11/23/2024 17:34:50 Procedure Notes None recorded. Medical Equipment None Reported. Allergies Allergen ID Allergen Name Allergen Category Reaction Reaction Severity Criticality Documentation Date Start Date Code Code System Note Provider Name and Address Organization Details Recorded Time 44793 Substance with sulfonami de structure and antibacte rial mechanism of action (substanc e) medicatio n Not available Not available Not available 07/14/2020 06330 0906 SNOMED Comme nt: Locat [place]: [place] [...] 1 TABLET BY MOUTH EVERY OTHER DAY 11/24 completed Not Available Not Available Not Available hydrocodo ne 5 mg-acetam inophen 325 mg tablet TAKE 1 TABLET BY MOUTH EVERY 4 HOURS NEEDED FOR PAIN 05/30 completed Not Available Not Available Not Available Adderall 5 mg tablet take 1 tablet by oral route 2 times every day before breakfas t and at noon 03/15 completed Prescrib ed Elsewher e: Yes Loca tion: [facility] odify By: candice Olivareste r DateTime : 11/22/19 18 10:15:00 AM Not Available Not Available Not Available Zoloft 20 mg/mL oral concentra te take 2.5 millilit er by oral route every day and mix with 4 oz. (1/2 cup) of water, walter cortes, lemon/li me soda, lemonade or orange juice ONLY 12/31 completed Prescrib ed Elsewher e: Yes Loca tion: Pamela stokes [facility] odify By: candice Encounte r DateTime : 11/22/19 18 10:15:00 AM Not Available Not Available Not Available metronida zole 500 mg tablet TAKE 1 TABLET BY MOUTH TWICE DAILY WITH MEALS 04/01 completed Not Available Not Available Not Available ciproflox acin 500 mg tablet take 1 tablet (500MG) by oral route twice a day for 3 days. 11/24 completed Not Available Not Available Not Available Metrogel Vaginal 0.75 % (37.5 mg/5 gram) insert 1 applicat orful by vaginal route for 5 nights at bedtime 11/24 completed Prescrib ed Elsewher e: No Locat ion: [facility] odify By: anne-marie davies DateTime : 03/10/20 10:01:54 AM Not Available Not Available Not Available clotrimaz ole-betam ethasone 1 %-0.05 % topical cream APPLY TO THE AFFECTED AND SURROUND ING AREAS OF SKIN BY TOPICAL ROUTE 2 TIMES PER DAY IN THE MORNING AND EVENING FOR 2 WEEKS 11/24 completed Not Available Not Available Not Available Wellbutri n 75 mg tablet take 1 tablet (75MG) by oral route 3 times every day 01/07 completed Prescrib ed Elsewher e: No [facility]: francesco perez DateTime : 01/08/20 13 11:30:00 AM Not Available Not Available Not Available Wellbutri n 100 mg tablet take 1 tablet by oral route 2 times every day 03/08 completed Prescrib ed Elsewher e: Yes Loca tion: [facility] odify By: francesco perez DateTime : 01/08/20 [...] BY MOUTH TWICE DAILY FOR 7 DAYS 11/24 completed Not Available Not Available Not Available calcium 04/01 completed Not Available Not Available Not Available Daily Vitamin 04/01 completed Not Available Not Available Not Available Adderall 12/31 completed Not Available Not Available Not Available Loestrin 24 Fe 1 mg-20 mcg (24)/75 mg (4) tablet take 1 tablet by oral route every day 03/08 completed Prescrib ed Elsewher e: No Locat ion: Ruthcruz kike [facility] M odsergio By: francesco perez DateTime : 12/24/19 13 [...] Not Available Vitals Date Recorded Body height Body mass index (BMI) Body weight Systolic blood pressure Diastolic blood pressure Provider Name and Address Organization Details Last Updated DateTime 01/09/2022 162.56 cm 29.4 kg/m2 85519.3 g 128 mm[Hg] 80 mm[Hg] [facility] 2 15:41:41 Date Recorded Body height Body mass index (BMI) Body weight Systolic blood pressure Diastolic blood pressure Provider Name and Address Organization Details Last Updated DateTime 05/30/2023 162.56 cm 28.3 kg/m2 75428.74 g 124 mm[Hg] 80 mm[Hg] [facility] 3 13:41:16 Date Recorded Body height Body mass index (BMI) Body weight Systolic blood pressure Diastolic blood pressure Provider Name and Address Organization Details Last Updated DateTime 04/01/2024 162.56 cm 26.8 kg/m2 61004.41 g 132 mm[Hg] 85 mm[Hg] [facility] [facility] 4 16:13:26 Date Recorded Body height Provider Name an d Address Organization Details Last Updated DateTime 04/07/2024 162.56 cm [facility] 04/07/2024 11:32:30 Date Recorded Body height Body mass index (BMI) Body weight Systolic blood pressure Diastolic blood pressure Provider Name and Address Organization Details Last Updated DateTime 11/24/2024 162.56 cm 27.7 kg/m2 44031.81 g 134 mm[Hg] 82 mm[Hg] Shantelle Dasilva [facility] 5 09:49:50 Social History Question Answer Notes LastModified by Organizat ion Details LastModified Time Tobacco Smoking Status Former Smoker Estefania Stacy manolo [facility] 05/30/2023 13:32:22 Do You Have An Advance Directive? No Information n ot available 12/04/2021 How Many Years Have You Consumed Alcohol? 24 [email or web address] Information not available 11/24/2024 Are You Blind Or Do You Have Difficulty Seeing? No [email or web address] Information n ot available 11/24/2021 What Is Your Level Of Caffeine Consumption? Moderate [email or web address] Information not available 11/24/2021 How Much Tobacco Do You Chew? None Information not available 01/09/2022 In The 14 Days Before Symptom Onset, Have You Had Close Contact With A Laboratory-confirm ed COVID-19 While That Case Was Ill? No [email or web address] Information n ot available 11/24/2021 In The 14 Days Before Symptom Onset, Have You Had Close Contact With A Person Who Is Under Investigation For COVID-19 While That Person Was Ill? No [email or web address] Information not available 11/24/2021 Have You Been To An Area Known To Be High Risk For COVID-19? No [email or web address] Information not available 11/24/2021 Are You Deaf Or Do You Have Serious Difficulty Hearing? No [email or web address] Information not available 11/24/2021 What Type Of Diet Are You Following? REGULAR [email or web address] Information n ot available 11/24/2021 What Is The Highest Grade Or Level Of School You Have Completed Or The Highest Degree You Have Received? [id number] Information not available 12/04/2021 Are There Any Guns Present In Your Home? No Information not available 12/04/2021 Have You Ever Been Counseled For Unhealthy Alcohol Use? No Information not available 05/30/2023 Do You Use Protection During Sex? Usually Information not available 01/09/2022 Do You Use Your Seat Belt Or Car Seat Routinely? Yes [email or web address] Information not available 11/24/2021 Do You Have Smoke And Carbon Monoxide Detectors In Your Home? Yes [email or web address] Information not available 11/24/2021 At What Age Did You Start Smoking Tobacco? 16 Information not available 05/30/2023 How Much Tobacco Do You Smoke? No Information not available 12/04/2021 Do You Use Sunscreen Routinely? Yes [email or web address] Information not available 11/24/2021 Has Tobacco Cessation Counseling Been Provided? No Information not available 05/30/2023 How Many Years Have You Smoked Tobacco? 15 Information not available 05/30/2023 Have You Used IV Drugs? No Information not available 12/04/2021 Do You Have Difficulty Walking Or Climbing Stairs? No Information not available 05/30/2023 Sex: Unknown Functional Status Question Answer Note LastModified by Organizat ion Details LastModified Time Do you use any illicit or recreational drugs? No [email or web address] Information not available 11/24/2021 Do you or have you ever used any other forms of tobacco or nicotine? No Information not available 05/30/2023 What is your level of alcohol consumption? Occasional [email or web address] Information not available 11/24/2021 Are you able to walk? YESWOREST [email or web address] Information not available 11/24/2021 Are you able to care for yourself? 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 Moderate [email or web address] Information not available 11/24/2024 Mental Status Question Answer Note LastModified by Organization D etails LastModified Time Do you feel stressed (tense, restless, nervous, or anxious, or unable to sleep at night)? [id number] [email or web address] Information not available 11/24/2024 Family History Relationship Description Onset Age of this Age Resolved Age Notes LastModified by Organization Details LastModified Time Maternal Grandfather Malignant neoplasm of prostate [email or web address] Not available 2023 15:59:24 Maternal Grandfather Heart [...] Abnormal Pap Y Date of Last Mammogram 11/17/2024 Date of LMP 01/12/2022 On BCP's at Conception? N Was last menstrual period normal N STIs/STDs N Current Control Method Sterilizati on Age at First Child 20 Sexually Active? Y None Menses Monthly N Date of DEXA bone scan Age of first menstrual cycle 14 Date of Last Pap Smear 05/30/2023 Sexual Problems? N Desired Control Method Ablation LMP Definite N Obstetrics History GPAL:G 2 P 2 0 0 2 Type Value Full Term 2 Living 2 Total 2 Past Encounters Encounter ID Performer Location Encounter Start Date Encounter Closed Date Diagnosis/Indication Diagnosis SNOMED-CT Code Diagnosis ICD10 Code Diagnosis Note [id number] MARCOS [facility] [address] [address] 11/24/2021 09:58:33 11/24/2021 12:41:08 test negative 645182787 Z32.02 Menorrhagia 279745718 D2 5.9 Today we agreed to update [...] counseling and review of plan of care. [id number] Naveen Valdes MD [place] [address] [address] 11/26/2021 15:57:29 11/27/2021 12:57:57 Uterine leiomyoma 92541384 D25.9 [id number] Naveen Valdes MD [place] [address] [address] 12/04/2021 12:38:58 12/04/2021 17:44:40 Menorrhagia 974384218 N92.0 Uterine leiomyoma 294001 05 D25.9 Polyp of corpus uteri 11 301084 N84.0 This patient is a 46-year-ol d [...] with salpingect timo and endometria l ablation. [id number] Naveen Valdes MD [place] [address],[facility] [place] [address] 12/27/2021 15:15:06 12/27/2021 15:49:01 Lesion of endometrium 0764548866 9101 N85.9 Menorrhagia 234708247 N9 2.0 Female sterilization 608 09813 Z30.2 this patient is a 46-year-ol d female with menorrhagi a, endometria l lesion, and unwanted fertility. We have agreed to perform laparoscop ic bilateral salpingect timo, hysterosco py with D&C and endometria l sampling and polypectom y and endometria l ablation. She understand s the risks, benefits, and alternativ es. She has completed the informed consent process and is ready to proceed. [id number] Naveen Valdes MD [place] [address],[facility] [place] [address] 01/03/2022 11:16:54 01/03/2022 11:24:23 [id number] Naveen Valdes MD [place] [address],[facility] [place] [address] 01/08/2022 16:53:02 01/09/2022 14:48:40 Urinary symptoms 533916885 R39.9 [id number] Naveen Valdes MD [place] [address] [address] 01/09/2022 15:31:20 01/09/2022 17:49:13 Dehiscence of surgical wound 57060442 T81.30XA This patient is a 46-year-ol d [...] and intact. She is recovering normally otherwise. [id number] [facility] [address] [address] 05/30/2023 13:20:58 05/30/2023 13:59:58 Gynecologic examination 17472376 Z01.419 Take Calcium with Vitamin D 12-1500mg daily. Do monthly self breast exams. It is advised to get annual flu shot in the fall and she could obtain at [facility] or [facility] care clinic. If you haven't received the [...] ScreenDexa ScreenRout ine LabsMammo- -PCP ordered Vaginitis 40639615 N76.0 BV suspected on examRx sent Counseled on medication R/B's, Most common side effects, & use. All questions were answered to patient satisfacti on. Discussed boric acid vaginal once weekly for prevention along with VCG's. [id number] Naveen Valdes MD [place] [address],[place] [address] 04/01/2024 15:59:14 04/01/2024 16:56:28 Urinary symptoms 401064044 R39.9 Vulvovaginitis 76148133 N76.0 48-year-ol d female with urinary urgency [...] will treat. Acute urin autumn tract infection 144057164 N39.0 [id number] Naveen Valdes MD [place] [address],[place] [address] 04/07/2024 11:01:41 04/07/2024 11:34:57 Urinary symptoms 663517359 R39.9 Acute urin autumn tract infection 015727254 N39.0 [id number] Naveen Valdes MD [place] [address],[place] [address] 11/24/2024 09:39:56 11/24/2024 11:43:26 Perimenopausal state 5220252366 79277 N95.1 Discussed regan-menop ausal symptoms that can occur, including vaginal dryness, pelvic floor dysfunctio n, vasomotor symptoms, etc.Discus sed vaginal estradiol cream to apply to the vulva and vagina once nightly x 2 weeks, then twice weekly thereafter to help with vaginal atrophy and dyspareuni a.Will check labs to check for menopause. Hx of endometria l ablation, no periods since then. Increased frequency of urination 109737778 R35.0 Recommende d pelvic floor therapy to help with stress incontinen ce and urinary frequency. Vaginal estrogen can also be used to address urinary incontinen ce. It is applied directly to the vulva and vagina, stimulatin g tissue rejuvenati on, thickening , and increased lubricatio n. This treatment can help improve or resolve urinary incontinen ce, decrease irritation , and improve pain during sex. Patient to consider these options. Will r/o UTI with dipstick and urine culture. Well woman health examination 985020432 Z01.419 Annual gynecologi madison exam performed. Patient will come back in a year unless there are new symptoms. Suggest Calcium with Vitamin D if not eating in diet. Patient advised to get annual flu shot. Recommend yearly physicals and perform monthly breast exams. Genetic testing is available for patients with family history of cancer. Engage in safe sexual practices, use condoms. Encouraged to have daily exercise. Avoid tobacco and illicit drugs, moderation of alcohol. If BMI greater than 25 dietary consult advised. If you have any questions please call or email. mammogram- PCP ordered; pt had mammogram 11/17/2024; birads 0 result - pt states that she has to make f/u appointmen t colon cancer screening - UTD PCP (martha ) DEXA scan- n/a Pap smear- UTD 2022 - WNL, will repeat in 2025 per ASCCP guidelines laboratory evaluation - PCP STI testing - requested Venereal d isease screening 068875363 Z11.3 Pt requested STI testing.Di scussed the various types of STDs, related symptoms and the potential consequenc es (including effects on fertility) of STD infections . Reviewed ways to limit exposure and prevention techniques . Health Concerns Section Related Observation LastModified by Organization Detai ls LastModified Time None Recorded Concern Status LastModified by Organization Details LastModified Time None Recorded Advance Directives Directive N: Payers Encounter Date Sequence Insurance Name Policy Number Policy Smith Covered Member ID Smith Member ID Guarantor Name 01/09/2022 1 TUYET Moncada [id number] Jorge Luis Moncada 05/30/2023 1 TUYET Moncada [id number] Jorge Luis Moncada 04/01/2024 1 TUYET Moncada [id number] Jorge Luis Moncada 04/07/2024 1 TUYET Moncada [id number] Jorge Luis Moncada 11/24/2024 1 TUYET Moncada [id number] Jorge Luis Moncada Notes Date Note Type [...] otherwise. Naveen Valdes MD [address], [place], [address], [facility] 01/09/2022 17:40:18 05/30/2023 text/html Annual GYNReport [...] Needs to schedule mammogram (PCP has ordered) MARCOS [facility]- [address], [place], [address], [facility] 05/30/2023 13:59:47 04/01/2024 text/html 48-year-old fema [...] treat. Naveen Valdes MD [address], [place], [address], [facility] 04/01/2024 16:49:04 11/24/2024 text/html Annual GYNReport ed bypatient.Menstrual cycle:Perimenopausal Urinary symptoms:No hematuria;Stress incontinence;Increas ed urinary frequency Vulva:No genital lesion Vagina:Normal vaginal discharge Breast:No breast pain; No breast lump; No nipple discharge Current Contraception:Tubal ligation Sexual complaints:No sexual complaints; Normal libido;Pain during intercourse Menopausal Symptoms:No menopausal symptoms;Inadequacy of lubrication of vaginal mucosa Psychological symptoms:No depression; No anxiety; No PMDD Preventive measures:Encourage self breast examination; Encourage regular exercise; Encourage no tobacco use; Encourage regular mammograms starting age 40 49 y/o female presents for annual exam.Patient reports worsening vaginal dryness and intermittent dyspareunia over the past year.Hx of tubal and endometrial ablation, denies vaginal bleeding since then.Patient reports increased frequency of urination over the past several months, and will leak urine when coughing or sneezing. Denies pelvic pain, dysuria, or urgency. DORINA GOODSON NP [address], [place], [address], [facility] 11/24/2024 11:27:14 OBGyn Episode Ob Episode Information Episode Created Date Number of Fetuses Patient Bloodtype Patient rh Status Prepregnancy Weight lbs Domestic Partner Domestic Partner Phone Father Name Hyperbaric Technologist Status 11/25/19 22 1 CLOSED Fetus Data First Name Last Name Admitted to NICU Weight (g) Sex Living Outcome Pediatric Complications Fetus ID Race Codes Race Delivery Type 3231.84 3 F Full Term [id number] Vaginal Delivery Chacorta Calculation Initial Chacorta Date [...] Domestic Partner Domestic Partner Phone Father Name Hyperbaric Technologist Status 11/25/19 22 1 CLOSED Fetus Data First Name Last Name Admitted to NICU Weight (g) Sex Living Outcome Pediatric Complications Fetus ID Race Codes Race Delivery Type 3912.23 1 M Full Term [id number] Vaginal Delivery Chacorta Calculation Initial Chacorta Date [...]
== END 2024-12-17 09:01 | disposition home or self-care (01) ==
PROVIDERS: PCP Nurse Practitioner Family; Visit Provider Obstetrics & Gynecology
DX: R92.8 Other abnormal and inconclusive findings on diagnostic imaging of breast (principal)
CPT/HCPCS: 76641; 77062; 77066; G0279

== ENCOUNTER 2025-01-18 09:52 | Outpatient (CLI) | payer OTHER, SELFPAY ==
--- NOTE | ~2025-01-18 | MR_ITS ---
EXAMINATION: MR breast BI wo/w con INDICATION: High-risk screening TECHNIQUE: Axial VIBRANT pre and dynamic post contrast, Sagittal VIBRANT post contrast, Axial T2 STIR ASSET COMPARISON: Mammography and sonography dated 11/17/2024 and 12/17/2024 CONTRAST: Multihance, 14 cc BREAST COMPOSITION: Extreme fibroglandular tissue FINDINGS: RIGHT BREAST: There is marked background parenchymal enhancement. Several small scattered right breas t cysts are present. There are several small enhancing masses scattered in the right breast versus en hancing fibroglandular tissue. Largest focal enhancing lesion is in the outer right breast, measuring 10 mm in diameter, with predominantly type II kinetic waveforms (series 3 image 717 on PACS images). . No pathologically enlarged axillary or internal mammary lymph nodes are identified. LEFT BREAST: There is marked background parenchymal enhancement. Several scattered simple breast cyst s are present. There are several scattered focal enhancing masses versus enhancing fibroglandular tis tahira throughout the left breast. Largest discrete lesion measures 9 mm in diameter at the inner left b reast (series 3 image 98 on PACS images), again with largely type II kinetic waveform. No pathologica lly enlarged axillary or internal mammary lymph nodes are identified. IMPRESSION: Multiple small enhancing masses versus nodule enhancing fibrofatty tissue scattered in both breasts, as detailed above. Given the small size of enhancing lesions as well as the high number of lesions o r enhancing areas present, 3-6 month follow-up MR is advised to reassess for any persistent or progre ssing lesions. Please refer to prior diagnostic mammography/sonography workup regarding recommendation for biopsy of a small right breast lesion seen on those exams. BI-RADS category 3, probably benign findings. Reviewed, dictated and finalized at location M. IMPRESSION: Multiple small enhancing masses versus nodule enhancing fibrofatty tissue scat tered in both breasts, as detailed above. Given the small size of enhancing les ions as well as the high number of lesions or enhancing areas present, 3-6 vitaliy h follow-up MR is advised to reassess for any persistent or progressing lesions . Please refer to prior diagnostic mammography/sonography workup regarding recomm endation for biopsy of a small right breast lesion seen on those exams. BI-RADS category 3, probably benign findings.
== END 2025-01-18 09:53 | disposition home or self-care (01) ==
PROVIDERS: PCP Nurse Practitioner Family; Visit Provider Surgery
DX: N63.15 Unspecified lump in the right breast, overlapping quadrants (principal); Z91.89 Other specified personal risk factors, not elsewhere classified; R92.8 Other abnormal and inconclusive findings on diagnostic imaging of breast
CPT/HCPCS: 77049; A9577; C8908

== ENCOUNTER 2025-02-07 09:36 | Outpatient (CLI) | payer OTHER, SELFPAY ==
--- NOTE | ~2025-02-07 | MMUS_ITS ---
MM post biopsy diagnostic RT, US breast biopsy RT w image EXAMINATION: US GUIDED NEEDLE BIOPSY WITH V ACUUM ASSISTANCE INDICATION: Right breast mass. Ultrasound-guided core biopsy is requested to evaluate for malignancy . BREAST PARENCHYMAL COMPOSITION: Dense: The breasts are heterogeneously dense, which may obscure small masses TECHNIQUE AND FINDINGS: The risks and potential benefits of the procedure were discussed with the patient, and written inform ed consent was obtained. After sterile preparation of the right breast, 1% lidocaine was utilized fo r local anesthesia. 1% lidocaine with epinephrine was used for deep anesthesia. A 10G vacuum-assisted biopsy gun needle was advanced through to the outer edge of the region of inter est from a lateral approach utilizing sonographic guidance. A total of 3 tissue core samples were ob tained through the lesion. An Inrad tissue marker clip was then placed at the biopsy site. Hemostasi s was achieved. The patient tolerated procedure well and there was no evidence of immediate complication. The patien t was given verbal instructions partly is from the department. Right breast mammograms to document t issue marker clip placement. The tissue samples were submitted to surgical pathology for histologic a nalysis. IMPRESSION: 1. Successful ultrasound-guided vacuum-assisted biopsy of right breast mass with post procedure mamm ogram for marker placement. Please refer to pathology report for histologic analysis. Reviewed, dictated and finalized at location B. IMPRESSION: 1. Successful ultrasound-guided vacuum-assisted biopsy of right breast mass wi th post procedure mammogram for marker placement. Please refer to pathology rep ort for histologic analysis.
--- OUTSIDE RECORDS SUMMARY | 2025-02-07 09:39 | XMS_ITS | Data Portability ---
Author Organization [facility] Address [address] [place] [address] [address] Care Team Providers Care Supervisor Grounds Name Role Phone NICOLÁSONURURIELLETA Primary Care Provider [phone] Assessment Encounter Date Assessment Date Assessment LastModified by Organization Details LastModified Time 05/30/2023 05/30/2023 Annual gynecological exam performed. Patient will come back in a year unless there are new symptoms. Not available 05/30/2023 13:31:08 11/24/2024 11/24/2024 Annual gynecological exam performed. Patient will come back in a year unless there are new symptoms. [email or web address] Not available 11/24/2024 09:42:18 Plan of Treatment Reminders Order Date Submit Date Provider Last Modified By Organization Details Last Modified Time Details Appointments None recorded. Lab hormone panel, serum or plasma 2024 025 [facility] (Lab), [address], [place], [address], 05:13:04 urinalysis, dipstick 2024 025 [email or web address] [facility], [address], [place], [address], 10:23:27 culture, urine 2024 025 [facility] (Lab), [address], [place], [address], 05/01/202 5 21:51:42 CT + NG + TV, RNA, unspecified specimen 2024 025 [facility] (Lab), [address] [facility], [place], [address], 5 21:51:41 urinalysis, dipstick 2023 024 [email or web address] [facility], [address], [place], [address], 4 11:33:17 culture, urine 2023 024 [facility] (Lab), [address] [facility], [place], [address], 4 20:16:42 urinalysis, dipstick 2023 [email or web address] [facility], [place], [address], 4 16:22:02 Referral None recorded. Procedures None recorded. Surgeries None recorded. Imaging None recorded. Medication Orders Macrobid 100 mg capsule 2023 025 [facility] #[id number], [address], [place], [id number], 5 09:42:42 Cipro 500 mg tablet 2023 025 [facility] #[id number], [address], [place], [id number], 5 09:42:08 Diflucan 150 mg tablet 2023 025 [facility] #[id number], [address], [place], [id number], 5 09:42:19 clotrimazol e-betametha sone 1 %-0.05 % topical cream 2023 025 [facility] #[id number], [address], [place], [id number], 5 09:42:22 metronidazo le 500 mg tablet 2022 024 [facility] #[id number], [address], [place], [id number], 4 16:14:10 Patient TargetsNo targets recorded. Patient InstructionsNo instructions recorded. Reason for Referral None Reported. Results Created Date Observation Date Name Description Value Unit Range Abnormal Flag Note LastModifiedBy Organization Detail LastModifiedTime 12/20/19 22 12/19/2021 CBC W/DIF F WBC 4.4 10'3/ uL 3.6-10 .2 Not Available [facility] (Lab) [address] [facility], [place], [address], 12/20/2021 03:54:20 12/20/19 22 12/19/2021 CBC W/DIF F RBC 4.30 10'6/ uL (based on docume nted legal sex) 4.10-5 .30 Not Available [facility] (Lab) [address] [place], [address], 12/20/2021 03:54:20 12/20/19 22 12/19/2021 CBC W/DIF F HGB 9.7 g/dL (based on docume nted legal sex) 11.9-1 5.8 low Not Available [facility] (Lab) [address] [place], [address], 12/20/2021 03:54:20 12/20/19 22 12/19/2021 CBC W/DIF F HCT 34.3 % (based on docume nted legal sex) 37.4-4 8.3 low Not Available [facility] (Lab) [address] [place], [address], 12/20/2021 03:54:20 12/20/19 22 12/19/2021 CBC W/DIF F MCV 80.0 fL 82.0-9 9.0 low Not Available [facility] (Lab) [address] [facility], [place], [address], 12/20/2021 03:54:20 12/20/19 22 12/19/2021 CBC W/DIF F MCH 23.0 pg 27.0-3 3.0 low Not Available [facility] (Lab) [address] [facility], [place], [address], 12/20/2021 03:54:20 12/20/19 22 12/19/2021 CBC W/DIF F MCHC 28.0 g/dL 32.0-3 6.0 low Not Available [facility] (Lab) [address] [facility], [place], [address], 12/20/2021 03:54:20 12/20/19 22 12/19/2021 CBC W/DIF F RDW 23.0 % 11.0-1 5.0 high Not Available [facility] (Lab) [address] [place], [address], 12/20/2021 03:54:20 12/20/19 22 12/19/2021 CBC W/DIF F plt 483 10'3/ uL 150-45 0 high Not Available [facility] (Lab) [address] [place], [address], 12/20/2021 03:54:20 12/20/19 22 12/19/2021 CBC W/DIF F MPV 9.6 fL 9.8-12 .7 low Not Available [facility] (Lab) [address] [place], [address], 12/20/2021 03:54:20 12/20/19 22 12/19/2021 CBC W/DIF F NRBC's 0.00 % 0 Not Available [facility] (Lab) [address] [facility] [place], [address], 12/20/2021 03:54:20 12/20/19 22 12/19/2021 CBC W/DIF F absolute NRBCs 0.0 10'3/ uL 0 Not Available [facility] (Lab) [address] [facility], [place], [address], 12/20/2021 03:54:20 12/20/19 22 12/19/2021 CBC W/DIF F neutrophils 55.0 % 37.0-7 2.0 Not Available [facility] (Lab) [address] [facility], [place], [address], 12/20/2021 03:54:20 12/20/19 22 12/19/2021 CBC W/DIF F lymphocytes 32.0 % 16.0-4 8.0 Not Available [facility] (Lab) [address] [facility], [place], [address], 12/20/2021 03:54:20 12/20/19 22 12/19/2021 CBC W/DIF F monocytes 8.0 % 4.0-14 .0 Not Available [facility] (Lab) [address] [place], [address], 12/20/2021 03:54:20 12/20/19 22 12/19/2021 CBC W/DIF F eosinophils 3.0 % 0.0-9. 0 Not Available [facility] (Lab) [address] [place], [address], 12/20/2021 03:54:20 12/20/19 22 12/19/2021 CBC W/DIF F basophils 2.0 % 0.0-2. 0 Not Available [facility] (Lab) [address] [place], [address], 12/20/2021 03:54:20 12/20/19 22 12/19/2021 CBC W/DIF F immature granulocytes 0.0 % no define d refere nce range Not Available [facility] (Lab) [address] [facility], [place], [address], 12/20/2021 03:54:20 12/20/19 22 12/19/2021 CBC W/DIF F absolute neutrophils 2.4 10'3/ uL 1.1-6. 0 Not Available [facility] (Lab) [address] [place], [address], 12/20/2021 03:54:20 12/20/19 22 12/19/2021 CBC W/DIF F absolute lymphocytes 1.4 10'3/ uL 0.7-3. 4 Not Available [facility] (Lab) [address] [place], [address], 12/20/2021 03:54:20 12/20/19 22 12/19/2021 CBC W/DIF F absolute monocytes 0.4 10'3/ uL 0.3-1. 0 Not Available [facility] (Lab) [address] [place], [address], 12/20/2021 03:54:20 12/20/19 22 12/19/2021 CBC W/DIF F absolute eosinophils 0.2 10'3/ uL 0.0-0. 6 Not Available [facility] (Lab) [address] [place], [address], 12/20/2021 03:54:20 12/20/19 22 12/19/2021 CBC W/DIF F absolute basophils 0.1 10'3/ uL 0.0-0. 1 Not Available [facility] (Lab) [address] [place], [address], 12/20/2021 03:54:20 12/20/19 22 12/19/2021 CBC W/DIF [...] resul ts are expec nhung. Not Available [facility] (Lab) [address] [facility], [place], [address], 12/20/2021 03:54:20 12/20/19 22 12/19/2021 TOM TIN / IRON / TRANS TOM N / TIBC iron 10 ug/dL 40-170 low Not Available [facility] (Lab) [address] [facility], [place], [address], 12/20/2021 03:54:20 12/20/19 22 12/19/2021 TOM TIN / IRON / TRANS TOM N / TIBC transferrin 297 mg/dL 200-36 0 Not Available [facility] (Lab) [address] [facility], [place], [address], 12/20/2021 03:54:20 12/20/19 22 12/19/2021 TOM TIN / IRON / TRANS TOM N / TIBC ferritin 13.0 NG/mL 8.0-25 2.0 Not Available [facility] (Lab) [address] [facility], [place], [address], 12/20/2021 03:54:20 12/20/19 22 12/19/2021 TOM TIN / IRON / TRANS TOM N / TIBC TIBC 416 ug/dL 250-45 0 Not Available [facility] (Lab) [address] [place], [address], 12/20/2021 03:54:20 12/20/19 22 12/19/2021 TOM TIN / IRON / TRANS TOM N / TIBC iron saturation 2 % 20-55 low Not Available [facility] (Lab) [address] [place], [address], 12/20/2021 03:54:20 01/09/20 22 01/08/2022 CULTU RE: URINE result report SEE RESULT S BELOW Test: Cultu re: Urine Speci men Sourc e: Urine Voide d Speci men Type: Urine Speci men Date: 2021 4:56 PM Resul t Date: 2021 10:29 PM Resul t Statu s: Final resul t Abnor mal: No Resul ting Lab: [facility] [address] [facility] [address] Tel: CULTU RE ----- ----- ----- --- No growt h in 1 day (dete ction level of 10,00 0 colon ies / ml.) Not Available [facility] (Lab) [address], [place], [address], 01/09/2022 23:33:27 01/09/20 22 01/08/2022 urina lysis , dipst ick Leukocytes ++ Not Available [facility] [address], [place], [address], 01/08/2022 17:33:52 01/09/20 22 01/08/2022 urina lysis , dipst ick Nitrite NEGATI VE Not Available [facility] [address], [place], [address], 01/08/2022 17:33:52 01/09/20 22 01/08/2022 urina lysis , dipst ick Urobilinogen NEGATI VE Not Available [facility] [address], [place], [address], 01/08/2022 17:33:52 01/09/20 22 01/08/2022 urina lysis , dipst ick Protein TRACE Not Available [facility] [address], [place], [address], 01/08/2022 17:33:52 01/09/20 22 01/08/2022 urina lysis , dipst ick pH 6 Not Available [facility] [address], [place], [address], 01/08/2022 17:33:52 01/09/20 22 01/08/2022 urina lysis , dipst ick Blood +++ Not Available [facility] [address], [place], [address], 01/08/2022 17:33:52 01/09/20 22 01/08/2022 urina lysis , dipst ick Specific Leblanc 1.000 Not Available [facility] [address], [place], [address], 01/08/2022 17:33:52 01/09/20 22 01/08/2022 urina lysis , dipst ick Ketone NEGATI VE Not Available [facility] [address], [place], [address], 01/08/2022 17:33:52 01/09/20 22 01/08/2022 urina lysis , dipst ick Bilirubin NEGATI VE Not Available [facility] [address], [place], [address], 01/08/2022 17:33:52 01/09/20 22 01/08/2022 urina lysis , dipst ick Glucose NEGATI VE Not Available [facility] [address], [place], [address], 01/08/2022 17:33:52 01/09/20 22 01/08/2022 urina lysis , dipst ick Appearance CLOUDY Not Available [facility] [address], [place], [address], 01/08/2022 17:33:52 01/09/20 22 01/08/2022 urina lysis , dipst ick Color PINK Not Available [facility] [address], [place], [address], 01/08/2022 17:33:52 05/30/20 23 05/30/2023 IMAGE GUIDE D PAP AND HPV REGAR DLESS image guided Pap, HPV regardless of Pap result SEE RESULT S BELOW CASE REPOR T: Cytol ogy Gynec ologi brice Repor t Case: [id number] Autho ja roberts Provi alena: Deneen hayes , Qing Edge cted: 05/30 1513 MASTER FISHER Order ing Locat ion: [place] [facility] Recei robby: 05/31 0212 First Scree n: Dyan Hodges , CT Speci men: Screkike tidwell Pap - Image d, Cervi x STATE MENT OF ADEQU ACY: Satis facto ry for evalu ation Trans forma tion zone compo nent prese nt FINAL DIAGN OSIS: Negat edgardo for Intra epith elial Lesalejandro shelby or Johnnie scott (NIL) . Elect [...] Thinp rep Imagi ng Syste m. CLINI BRICE INFOR MATIO N: Menst rual Statu s: LMP (if appli cable ): Clini brice Histo ry/Pr eviou s Pap: Type of Neopl kt (if appli cable ): Signi fican t Clini brice Findi ngs: Other Histo ry: Hormo judy [...] ng do not corre late with physi brice and/o r histo rical findi ngs, furth er inves tigat ion is recom leah d, as clini clyde warrvinnie nted. Not Available [facility] (Lab) [address] [facility], [place], [address], 06/03/2023 15:36:14 04/01/20 24 04/01/2024 VAGIN ITIS/ VAGIN OSIS, DNA PROBE tato sp. detection, direct probe Negati ve negati ve Not Available [facility] (Lab) [address] [place], [address], 04/03/2024 07:21:51 04/01/20 24 04/01/2024 VAGIN ITIS/ VAGIN OSIS, DNA PROBE gardnerella vag. detection, direct probe Negati ve negati ve Not Available [facility] (Lab) [address] [place], [address], 04/03/2024 07:21:51 04/01/20 24 04/01/2024 VAGIN ITIS/ VAGIN OSIS, DNA PROBE trichomonas vag. detection, direct probe Negati ve negati ve Not Available [facility] (Lab) [address] [place], [address], 04/03/2024 07:21:51 04/01/20 24 04/01/2024 CULTU RE: URINE result report SEE RESULT S BELOW Test: Cultu re: Urine Speci men Sourc e: Urine - Clean Catch Speci men Type: Urine Speci men Date: 1645 Resul t Date: 0618 Resul t Statu s: Final resul t Abnor mal: No Resul ting Lab: [facility] [address] [facility] [address] Tel: CULTU RE ----- ----- ----- --- No growt h in 1 day (dete ction level of 10,00 0 colon ies / ml.) Not Available [facility] (Lab) [address] [facility], [place], [address], 04/03/2024 07:21:52 04/01/20 24 04/01/2024 urina lysis , dipst ick Protein + Not Available [facility] [address], [place], [address], 04/01/2024 16:18:52 04/01/20 24 04/01/2024 urina lysis , dipst ick pH 5 Not Available [facility] [address], [place], [address], 04/01/2024 16:18:52 04/01/20 24 04/01/2024 urina lysis , dipst ick Blood + Not Available [facility] [address], [place], [address], 04/01/2024 16:18:52 04/01/20 24 04/01/2024 urina lysis , dipst ick Specific Leblanc 1.020 Not Available [facility] [address], [place], [address], 04/01/2024 16:18:52 04/07/20 24 04/07/2024 CULTU RE: URINE result report SEE RESULT S BELOW Test: Cultu re: Urine Speci men Sourc e: Urine - Clean Catch Speci men Type: Urine Speci men Date: 2023 1123 Resul t Date: 2023 1914 Resul t Statu s: Final resul t Abnor mal: No Resul ting Lab: [facility] [address] [facility] [address] Tel: CULTU RE ----- ----- ----- --- No growt h in 1 day (dete ction level of 10,00 0 colon ies / ml.) Not Available [facility] (Lab) [address], [place], [address], 04/08/2024 20:16:42 04/07/20 24 04/07/2024 urina lysis , dipst ick Leukocytes + Not Available [facility] [address], [place], [address], 04/07/2024 11:32:48 04/07/20 24 04/07/2024 urina lysis , dipst ick Protein + Not Available [facility] [address], [place], [address], 04/07/2024 11:32:48 04/07/20 24 04/07/2024 urina lysis , dipst ick pH 6 Not Available [facility] [address], [place], [address], 04/07/2024 11:32:48 04/07/20 24 04/07/2024 urina lysis , dipst ick Blood + Not Available [facility] [address], [place], [address], 04/07/2024 11:32:48 04/07/20 24 04/07/2024 urina lysis , dipst ick Specific Leblanc 1.000 Not Available [facility] [address], [place], [address], 04/07/2024 11:32:48 04/07/20 24 04/07/2024 urina lysis , dipst ick Ketone + Not Available [facility] [address], [place], [address], 04/07/2024 11:32:48 11/25/19 25 11/24/2024 FSH, LH, ESTRA DIOL estradiol 155.0 pg/mL This assay was perfo rmed using [employer] reage nts and test kits. Value s obtai pedro with other assay metho ds or kits canno t be used inter fung eay . Femal e Estra diol Range s: Folli cular phase 12.4- 233 pg/mL Ovula tion phase 41.0- 398 pg/mL Lutea l phase 22.3- 341 pg/mL Postm enopa usal <5-13 8 pg/mL Healt hy Pregn ant Women 1st Trime ster 154-3 243 pg/mL 2nd Trime ster 1561- 60707 pg/mL 3rd Trime ster 8525- >3000 0 pg/mL Not Available [facility] (Lab) [address] [facility], [place], [address], 11/25/2024 05:13:04 11/25/19 25 11/24/2024 FSH, LH, ESTRA DIOL FSH 5.9 mIU/m L This assay was perfo rmed using [employer] reage nts and test kits. Value s obtai pedro with other assay metho ds or kits canno t be used inter fung eay . Femal es Folli cular : 3.5-1 2.5 mIU/m L Ovula tion: 4.7-2 1.5 mIU/m L Lutea l: 1.7-7 .7 mIU/m L Postm enopa use: 25.8- 134.8 mIU/m L Not Available [facility] (Lab) [address] [place], [address], 11/25/2024 05:13:04 11/25/19 25 11/24/2024 FSH, LH, [...] use: 7.7-5 8.5 mIU/m L Not Available [facility] (Lab) [address] [facility], [place], [address], 11/25/2024 05:13:04 11/25/19 25 11/24/2024 CT/GC AND TRICH OMONA S VAGIN GIA (RRNA ), URINE chlamydia trachomatis, PCR Negati ve negati ve Not Available [facility] (Lab) [address] [facility], [place], [address], 11/25/2024 21:51:41 11/25/19 25 11/24/2024 CT/GC AND TRICH OMONA S VAGIN GIA (RRNA ), URINE neisseria gonorrhoeae, PCR Negati ve negati ve Not Available [facility] (Lab) [address] [facility], [place], [address], 11/25/2024 21:51:41 11/25/19 25 11/24/2024 CT/GC AND TRICH OMONA S VAGIN GIA (RRNA ), URINE trichomonas vaginalis ribosomal RNA (rrna) Negati ve negati ve Not Available [facility] (Lab) [address] [facility], [place], [address], 11/25/2024 21:51:41 11/25/19 25 11/24/2024 CULTU RE: URINE result report SEE RESULT S BELOW Test: Cultu re: Urine Speci men Sourc e: Urine - Clean Catch Speci men Type: Urine Speci men Date: 2024 0928 Resul t Date: 2046 Resul t Statu s: Final resul t Abnor mal: No Resul ting Lab: [facility] [address] [facility] [address] Tel: CULTU RE ----- ----- ----- --- No growt h in 1 day (dete ction level of 10,00 0 colon ies / ml.) Not Available [facility] (Lab) [address], [place], [address], 11/25/2024 21:51:42 11/25/19 25 11/24/2024 urina lysis , dipst ick Leukocytes - Not Available [facility] [address], [place], [address], 11/24/2024 10:22:39 11/25/19 25 11/24/2024 urina lysis , dipst ick Nitrite - Not Available [facility] [address], [place], [address], 11/24/2024 10:22:39 11/25/19 25 11/24/2024 urina lysis , dipst ick Urobilinogen - Not Available [facility] y[address], [place], [address], 11/24/2024 10:22:39 11/25/19 25 11/24/2024 urina lysis , dipst ick Protein trace Not Available [facility] [address], [place], [address], 11/24/2024 10:22:39 11/25/19 25 11/24/2024 urina lysis , dipst ick pH 5 Not Available [facility] [address], [place], [address], 11/24/2024 10:22:39 11/25/19 25 11/24/2024 urina lysis , dipst ick Specific Leblanc 1.020 Not Available [facility] n[address], [place], [address], 11/24/2024 10:22:39 11/25/19 25 11/24/2024 urina lysis , dipst ick Ketone - Not Available [facility] [address], [place], [address], 11/24/2024 10:22:39 11/25/19 25 11/24/2024 urina lysis , dipst ick Bilirubin - Not Available [facility] [address], [place], [address], 11/24/2024 10:22:39 11/25/19 25 11/24/2024 urina lysis , dipst ick Glucose - Not Available [facility] [address], [place], [address], 11/24/2024 10:22:39 11/25/19 25 11/24/2024 urina lysis , dipst ick Appearance clear Not Available [facility] [address], [place], [address], 11/24/2024 10:22:39 11/25/19 25 11/24/2024 urina lysis , dipst ick Color light yellow Not Available [facility] [address], [place], [address], 11/24/2024 10:22:39 11/18/19 25 11/17/2024 MAMMO , scree diann, bilat eral No observ ation record ed. [email or web address] [facility] [address] [place], [address], 11/23/2024 17:34:50 12/18/19 25 12/17/2024 MAMMO , diagn ostic , digit al, bilat eral No observ ation record ed. [email or web address] [facility] [address] [place], [address], 12/17/2024 16:02:26 01/22/20 25 01/18/2025 US, suyapa babcock, carole eral No observ ation record ed. [email or web address] [facility] [address] [place], [address], 02/04/2025 10:07:02 Result Notes None recorded. Procedures Surgical History Date Name Laterality Status Provider Name and Address Organization Details Recorded Time 11/18/19 25 Date of Last Mammogram completed [facility] 11/24/2024 09:50:34 05/30/20 23 Date of Last Pap Smear completed Roxi Xie [facility] 04/01/2024 16:14:05 01/03/20 22 HYSTEROSCOPY, WITH ENDOMETRIAL ABLATION (SURG) completed Inga Fuentes [facility] 01/03/2022 11:36:53 06/27/20 15 cholecystectomy completed Violet [facility] 11/24/2021 10:21:27 07/28/19 05 excision of benign tumor of breast completed [facility] 11/24/2021 10:21:13 07/28/19 03 [facility] wisdom tooth [facility] 11/24/2021 10:21:35 Breast Biopsy completed Estefania Stacy [facility] 12/04/2021 12:42:33 Tubal Ligation completed [facility] 11/24/2024 09:41:25 Cholecystectomy completed [facility] 11/24/2024 09:41:25 Imaging Results None recorded. Procedure Notes None recorded. Medical Equipment None Reported. Allergies Allergen ID Allergen Name Allergen Category Reaction Reaction Severity Criticality Documentation Date Start Date Code Code System Note Provider Name and Address Organization Details Recorded Time 32991 Substance with sulfonami de structure and antibacte rial mechanism of action (substanc e) medicatio n Not available Not available Not available 07/14/2020 18388 8003 SNOMED Comme nt: [facility]; Not Available [facility] 0 14:24:22 Medications Name Sig Start Date [...] Prescrib ed Elsewher e: Yes Loca tion: [facility] odify By: candice Encounte r DateTime : 11/22/19 10:15:00 AM Not Available Not Available Not Available Zoloft 20 mg/mL oral concentra te take 2.5 millilit er by oral route every day and mix with 4 oz. (1/2 cup) of water, walter cortes, lemon/li me soda, lemonade or orange juice ONLY 12/31 completed Prescrib ed Elsewher e: Yes Loca tion: [facility] odify By: candice Encounte r DateTime : 11/22/19 10:15:00 AM Not Available Not Available Not [...] Prescrib ed Elsewher e: No Locat ion: Brianna kike [facility] odify By: anne-marie davies DateTime : [...] Prescrib ed Elsewher e: No [facility] By: francesco perez DateTime : 01/08/20 13 11:30:00 AM Not Available Not Available Not Available Wellbutri n 100 mg tablet take 1 tablet by oral route 2 times every day 03/08 completed Prescrib ed Elsewher e: Yes Loca tion: Pamela stokes [facility] odify By: francesco perez DateTime : [...] Prescrib ed Elsewher e: No [facility] By: candice pedroza DateTime : 03/14/20 16 03:05:37 PM Not Available Not Available Not Available nitrofura ntoin monohydra te/macroc rystals 100 mg capsule TAKE 1 CAPSULE BY MOUTH TWICE DAILY FOR 7 DAYS 04/30 /2025 completed Not Available Not Available Not Available calcium 04/01 completed Not Available Not Available Not Available Daily Vitamin 04/01 completed Not Available Not Available Not Available Adderall 12/31 completed Not Available Not Available Not Available Loestrin 24 Fe 1 mg-20 mcg (24)/75 mg (4) tablet take 1 tablet by oral route every day 03/08 completed Prescrib ed Myra e: No Locat ion: [facility] odify By: francesco perez DateTime : 12/24/19 [...] Body mass index (BMI) Body weight Systolic And Diastolic Provider Name and Address Organization Details Last Updated DateTime 11/24/2024 162.56 cm 27.7 kg/m2 94432.81 g 134/82 mm[Hg] Shantelle Bedoyaton [facility] 11/24/2024 09:49:50 Date Recorded Body height Body mass index (BMI) Body weight Systolic And Diastolic Provider Name and Address Organization Details Last Updated DateTime 01/09/2022 162.56 cm 29.4 kg/m2 79465.3 g 128/80 mm[Hg] Estefania Stacy [facility] 01/09/2022 15:41:41 Date Recorded Body height Body mass index (BMI) Body weight Systolic And Diastolic Provider Name and Address Organization Details Last Updated DateTime 04/01/2024 162.56 cm 26.8 kg/m2 92202.41 g 132/85 mm[Hg] Roxi Xie [facility] 04/01/2024 16:13:26 Date Recorded Body height Provider Name an d Address Organization Details Last Updated DateTime 04/07/2024 162.56 cm Roxi [facility] 04/07/2024 11:32:30 Date Recorded Body height Body mass index (BMI) Body weight Systolic And Diastolic Provider Name and Address Organization Details Last Updated DateTime 05/30/2023 162.56 cm 28.3 kg/m2 39059.74 g 124/80 mm[Hg] Estefania Stacy [facility] 05/30/2023 13:41:16 Social History Question Answer Notes LastModified by Organizat ion Details LastModified Time Tobacco Smoking Status Former Smoker Estefania Stacy manolo [facility] 05/30/2023 13:32:22 Do You Have An Advance Directive? No Information n ot available 12/04/2021 How Many Years Have You Consumed Alcohol? 24 [email or web address] Information not available 11/24/2024 Are You Blind Or Do You Have Difficulty Seeing? No [email or web address] Information n ot available 11/24/2021 What Is Your Level Of Caffeine Consumption? Moderate Information not available 11/24/2021 How Much Tobacco Do You Chew? None Information not available 01/09/2022 In The 14 Days Before Symptom Onset, Have You Had Close Contact With A Laboratory-confirm ed COVID-19 While That Case Was Ill? No [email or web address] Information n ot available 11/24/2021 In The 14 Days Before Symptom Onset, Have You Had Close Contact With A Person Who Is Under Investigation For COVID-19 While That Person Was Ill? No [email or web address] Information not available 11/24/2021 Have You Been To An Area Known To Be High Risk For COVID-19? No Information not available 11/24/2021 Are You Deaf Or Do You Have Serious Difficulty Hearing? No [email or web address] Information not available 11/24/2021 What Type Of Diet Are You Following? REGULAR [email or web address] Information n ot available 11/24/2021 What Is The Highest Grade Or Level Of School You Have Completed Or The Highest Degree You Have Received? [id number] Information not available 12/04/2021 Are There Any Guns Present In Your Home? No Information not available 12/04/2021 Have You Ever Been Counseled For Unhealthy Alcohol Use? No Information not available 05/30/2023 Do You Use Protection During Sex? Usually Information not available 01/09/2022 Do You Use Your Seat Belt Or Car Seat Routinely? Yes [email or web address] Information not available 11/24/2021 Do You Have Smoke And Carbon Monoxide Detectors In Your Home? Yes [email or web address] Information not available 11/24/2021 At What Age Did You Start Smoking Tobacco? 16 Information not available 05/30/2023 How Much Tobacco Do You Smoke? No Information not available 12/04/2021 Do You Use Sunscreen Routinely? Yes [email or web address] Information not available 11/24/2021 Has Tobacco Cessation [...] use any illicit or recreational drugs? No [email or web address] Information not available 11/24/2021 Do you or have you ever used any other forms of tobacco or nicotine? No Information not available 05/30/2023 What is your level of alcohol consumption? Occasional [email or web address] Information not available 11/24/2021 Are you able to walk? YESWOREST [email or web address] Information not available 11/24/2021 Are you able to care for yourself? 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 Moderate Information not available 11/24/2024 Mental Status Question Answer Note LastModified by Organization D etails LastModified Time Do you feel stressed (tense, restless, nervous, or anxious, or unable to sleep at night)? [id number] [email or web address] Information not available 11/24/2024 Family History Relationship Description Onset Age of this Age Resolved Age Notes LastModified by Organization Details LastModified Time Maternal Grandfather Malignant neoplasm of prostate Not available 2023 15:59:24 Maternal Grandfather Heart disease [email or web address] Not available 2022 13:31:53 Mother Malignant tumor [...] SNOMED-CT Code Diagnosis ICD10 Code Diagnosis Note [id number] Flores Looney [facility] [address] [address] 11/24/2021 09:58:33 11/24/2021 12:41:08 test negative 463756215 Z32.02 Menorrhagia 500692941 D2 5.9 Today we agreed to update [...] counseling and review of plan of care. [id number] Naveen Valdes MD [facility] [address] [address] 11/26/2021 15:57:29 11/27/2021 12:57:57 Uterine leiomyoma 75264427 D25.9 [id number] Naveen Valdes MD [facility] [address] [address] 12/04/2021 12:38:58 12/04/2021 17:44:40 Menorrhagia 434690273 N92.0 Uterine leiomyoma 309030 05 D25.9 Polyp of corpus uteri 11 740499 N84.0 This patient is a 46-year-ol d [...] with salpingect timo and endometria l ablation. [id number] Naveen Valdes MD [facility] [address] [address] 12/27/2021 15:15:06 12/27/2021 15:49:01 Lesion of endometrium 1516109531 9101 N85.9 Menorrhagia 907416944 N9 2.0 Female sterilization 608 46788 Z30.2 this patient is a 46-year-ol d female with menorrhagi a, endometria l lesion, and unwanted fertility. We have agreed to perform laparoscop ic bilateral salpingect timo, hysterosco py with D&C and endometria l sampling and polypectom y and endometria l ablation. She understand s the risks, benefits, and alternativ es. She has completed the informed consent process and is ready to proceed. [id number] Naveen Valdes MD [facility] [address] [address] 01/03/2022 11:16:54 01/03/2022 11:24:23 [id number] Naveen Valdes MD [facility] [address],[place] [address] 01/08/2022 16:53:02 01/09/2022 14:48:40 Urinary symptoms 155992857 R39.9 [id number] Naveen Valdes MD [facility] [address],[place] [address] 01/09/2022 15:31:20 01/09/2022 17:49:13 Dehiscence of surgical wound 43944256 T81.30XA This patient is a 46-year-ol d [...] and intact. She is recovering normally otherwise. [id number] Flores Looney [facility] [address],[place] [address] 05/30/2023 13:20:58 05/30/2023 13:59:58 Gynecologic examination 52085128 Z01.419 Take Calcium with Vitamin D 12-1500mg daily. Do monthly self breast exams. It is advised to get annual flu shot in the fall and she could obtain at [facility] or [facility] care clinic. If you haven't received [...] ScreenDexa ScreenRout ine LabsMammo- -PCP ordered Vaginitis 35658792 N76.0 BV suspected on examRx sent Counseled on medication R/B's, Most common side effects, & use. All questions were answered to patient satisfacti on. Discussed boric acid vaginal once weekly for prevention along with VCG's. [id number] Naveen Valdes MD [facility] [address],[place] [address] 04/01/2024 15:59:14 04/01/2024 16:56:28 Urinary symptoms 234983005 R39.9 Vulvovaginitis 64333416 N76.0 48-year-ol d female with urinary urgency [...] will treat. Acute urin autumn tract infection 549828618 N39.0 [id number] Naveen Valdes MD [facility] [address],[place] [address] 04/07/2024 11:01:41 04/07/2024 11:34:57 Urinary symptoms 544376660 R39.9 Acute urin autumn tract infection 445014878 N39.0 [id number] Naveen Valdes MD [facility] [address],[place] [address] 11/24/2024 09:39:56 11/24/2024 11:43:26 Perimenopausal state 2879427818 30485 N95.1 Discussed regan-menop ausal symptoms that can [...] periods since then. Increased frequency of urination 665702000 R35.0 Recommende d pelvic floor therapy to [...] and urine culture. [facility] examination 691881450 Z01.419 Annual gynecologi brice exam performed. Patient will come back in [...] t colon cancer screening - UTD PCP (cologuard ) DEXA scan- n/a Pap smear- UTD 2022 - WNL, will repeat in 2025 per [facility]CCP guidelines laboratory evaluation - PCP STI testing - requested Venereal d isease screening 283297972 Z11.3 Pt requested STI testing.Di scussed the [...] None Recorded Advance Directives Directive N: Payers Insurance Date Sequence Insurance Name Policy Number Policy Smith Covered Member ID Smith Member ID Guarantor Name 11/25/2024 1 [id number] Mely Moncada Notes Date Note Type Note Provider [...] recovering normally otherwise. Naveen Valdes MD [address], [place], [address], [facility] 01/09/2022 17:40:18 05/30/2023 text/html Annual GYNReport [...] mammogram (PCP has ordered) MARCOS Winkler- [address], [place], [address], [facility] 05/30/2023 13:59:47 04/01/2024 text/html 48-year-old fema [...] we will treat. Naveen Valdes MD [address], [place], [address], [facility] 04/01/2024 16:49:04 11/24/2024 text/html Annual GYNReport [...] dysuria, or urgency. DORINA GOODSON NP [address], [place], [address], [facility] 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
--- OUTSIDE RECORDS SUMMARY | 2025-02-07 09:39 | XMS_ITS | Referral Summary ---
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
--- OUTSIDE RECORDS SUMMARY | 2025-02-07 09:39 | XMS_ITS | Clinical Summary ---
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
--- NOTE | 2025-02-07 11:08 | S_PTH ---
PATIENT: Mely Moncada LOC: [facility] U#:[id number] AGE/SX: 49/F ROOM: RE02/07/[address]: Tracy Murdock MD : 1975 BED: DIS: 02/07/2025 SPEC #: [id number] RECD: 02/08/25 07:43 STATUS: YOHANNES REQ #: [id number] RAZA: 02/07/25 11:[address]: Tracy Murdock DEPT: [facility] Surgical RECD BY: Sahra Galan ENTERED: 02/08/25 07:43 SP TYPE: Surgical OTHR DR: Terra Onofre, OLIVER Tissues: A - Breast Biopsy Procedures: Hematoxylin and Eosin Stain Gross and Microscopic Level 4
== END 2025-02-07 09:37 | disposition home or self-care (01) ==
LOC: ANHIMG 09:37
PROVIDERS: PCP Nurse Practitioner Family; Visit Provider Surgery
DX: Z12.31 Encounter for screening mammogram for malignant neoplasm of breast (principal); N63.15 Unspecified lump in the right breast, overlapping quadrants; R92.8 Other abnormal and inconclusive findings on diagnostic imaging of breast; Z91.89 Other specified personal risk factors, not elsewhere classified
CPT/HCPCS: 19083; 77065; 88305; A4648